=== PATIENT | female | born 1935 | race African-American/Black ===

== ENCOUNTER 2016-11-24 10:31 | Outpatient (CLI) | payer MEDICARE ==
[2016-11-24 11:03] LABS: #Basophils 0.1 thou/uL (0.0-0.2); #Eosinphils 0.2 thou/uL (0.0-0.7); #Lymphocytes 2.1 thou/uL (1.20-3.40); #Monocytes 0.4 thou/uL (0.11-0.59); #Neutrophils 5.7 thou/uL (1.40-6.50); %Basophils 1.4 % (0.0-1.0); %Lymphocytes 24.8 % (21.0-51.0); %Monocytes 4.7 % (0.0-10.0); %Neutrophils 67.1 % (42.0-75.0); Hemoglobin 13.2 g/dL (12.0-16.0); Mean Corpuscular HGB CONC 31.7 g/dL (32.0-36.0); Mean Corpuscular Hemoglobin 28.9 pg (27.0-31.0); Mean Corpuscular Volume 91.3 fl (81.0-99.0); Mean Platelet Volume 7.6 fL (7.4-10.4); Platelet Count 226 thou/uL (130-400); RBC Distribution Width 14.2 % (11.5-14.5); Red Blood Cell (RBC) Count 4.55 mill/uL (4.20-5.40); White Blood Cell (WBC) Count 8.5 thou/uL (4.8-10.8)
[2016-11-24 11:14] LABS: Hemoglobin A1c 6.8 % (4.0-6.0)
[2016-11-24 11:16] LABS: Anion Gap 14 mmol/L (10-20); BUN (Urea Nitrogen) 18 mg/dL (9.8-20.1); Calc. Creatinine Clearance 0 mL/min (70-130); Calcium 10.1 mg/dL (7.8-10.44); Carbon Dioxide 26 mmol/L (23-31); Chloride 103 mmol/L (98-107); Estimated GFR-MDRD 48; Glucose 136 mg/dL (83-110); Potassium 4.2 mmol/L (3.5-5.1); Sodium 139 mmol/L (136-145)
[2016-11-24 17:29] LABS: Iron 56 ug/dL (50-170)
== END 2016-11-24 10:32 ==
LOC: MADLABBHPM 10:31
PROVIDERS: ATTEND Family Medicine
DX: G25.81 Restless legs syndrome (principal); E11.9 Type 2 diabetes mellitus without complications
CPT/HCPCS: 36415; 80048; 82728; 83036; 83540; 85025

== ENCOUNTER 2017-02-23 11:02 | Outpatient (CLI) | payer MEDICARE ==
[2017-02-23 11:39] LABS: ALT (SGPT) 11 U/L (8-55); AST (SGOT) 15 U/L (5-34); Albumin 4.2 g/dL (3.4-4.8); Alkaline Phosphatase 89 U/L (40-150); Anion Gap 14 mmol/L (10-20); BUN (Urea Nitrogen) 24 mg/dL (9.8-20.1); Bilirubin, Total 0.6 mg/dL (0.2-1.2); Calc. Creatinine Clearance 0 mL/min (70-130); Calcium 10.4 mg/dL (7.8-10.44); Carbon Dioxide 25 mmol/L (23-31); Chloride 103 mmol/L (98-107); Estimated GFR-MDRD 39; Globulin 3.8 g/dL (2.4-3.5); Glucose 106 mg/dL (83-110); Potassium 4.4 mmol/L (3.5-5.1); Sodium 138 mmol/L (136-145)
== END 2017-02-23 11:03 | disposition home or self-care (01) ==
LOC: MADLAB 11:02
PROVIDERS: ATTEND Family Medicine
DX: R22.40 Localized swelling, mass and lump, unspecified lower limb (principal)
CPT/HCPCS: 36415; 80053; 83036

== ENCOUNTER 2017-09-21 18:22 | Emergency (ER) | payer MEDICARE ==
[~2017-09-21 18:22] MED LIST: Sodium Chloride 0.9% 1,000 ML BAG ONE
[2017-09-21] MEDS ORDERED: Insulin Regular 300 UNITS/3 ML VIAL ONE (20:50)
[2017-09-21 20:53] LABS: INR-International Normal Ratio 1.1; PTT 33.7 SEC (22.9-36.1)
[2017-09-21 20:58] LABS: #Basophils 0.1 thou/uL (0.0-0.2); #Eosinphils 0.2 thou/uL (0.0-0.7); #Lymphocytes 2.9 thou/uL (1.20-3.40); #Monocytes 0.5 thou/uL (0.11-0.59); #Neutrophils 7.3 thou/uL (1.40-6.50); %Basophils 1.1 % (0.0-1.0); %Eosinophils 1.4 % (0.0-10.0); %Lymphocytes 26.3 % (21.0-51.0); %Neutrophils 66.2 % (42.0-75.0); Hemoglobin 13.8 g/dL (12.0-16.0); Mean Corpuscular Hemoglobin 30.2 pg (27.0-31.0); Mean Corpuscular Volume 88.9 fl (81.0-99.0); Mean Platelet Volume 6.8 fL (7.4-10.4); Platelet Count 281 thou/uL (130-400); RBC Distribution Width 13.9 % (11.5-14.5); Red Blood Cell (RBC) Count 4.55 mill/uL (4.20-5.40)
[2017-09-21 21:04] LABS: ALT (SGPT) 14 U/L (8-55); AST (SGOT) 17 U/L (5-34); Acetaminophen Less than 6.0 mcg/mL (10.0-30.0); Albumin 4.5 g/dL (3.4-4.8); Alcohol Less than 10 mg/dL (Less than 10); Alkaline Phosphatase 99 U/L (40-150); Anion Gap 17 mmol/L (10-20); BUN (Urea Nitrogen) 17 mg/dL (9.8-20.1); Bilirubin, Total 0.5 mg/dL (0.2-1.2); Calc. Creatinine Clearance 0 mL/min (70-130); Calcium 10.7 mg/dL (7.8-10.44); Carbon Dioxide 25 mmol/L (23-31); Chloride 101 mmol/L (98-107); Estimated GFR-MDRD 46; Globulin 4.1 g/dL (2.4-3.5); Glucose 235 mg/dL (83-110); Protein, Total 8.6 g/dL (6.0-8.3); Salicylate Less than 8.0 mg/dL (15.0-30.0); Sodium 139 mmol/L (136-145)
--- NOTE | 2017-09-21 21:10 | RAD ---
PORTABLE AP CHEST X-RAY 09/21/17 HISTORY: Hyperglycemia. COMPARISON: 12/16/14. FINDINGS: Dual lead right subclavian cardiac pacing device remains in place. Multiple surgical clips again over lie the left chest and left axillary region. Cardiac silhouette is magnified by projection but stable in size. Thoracic aorta is ectatic and Pulmonary vasculature is within normal limits. The lungs are clear. There has been no interval from prior exam. IMPRESSION: Stable chest without evidence of acute cardiopulmonary process. POS: NORRIS
[2017-09-21 21:17] LABS: CKMB 3.1 ng/mL (0-6.6); Troponin I Less than 0.010 ng/mL (< 0.028)
== END 2017-09-21 22:15 | disposition home or self-care (01) ==
LOC: MADERS 18:22
DX: E11.65 Type 2 diabetes mellitus with hyperglycemia (principal); I10 Essential (primary) hypertension; Z79.82 Long term (current) use of aspirin; Z79.4 Long term (current) use of insulin; Z79.899 Other long term (current) drug therapy
CPT/HCPCS: 36416; 71045; 80053; 80307; 82553; 83880; 84484; 85025; 85610; 85730; 87040; 87081; 87430; 87804; 93005; 94760; 96360; J1815; J7050

== ENCOUNTER 2018-08-14 07:55 | Emergency (ER) | payer MEDICARE ==
[2018-08-14] MEDS ORDERED: Morphine 10 MG/ML VIAL ONE (08:44)
== END 2018-08-14 09:37 | disposition home or self-care (01) ==
LOC: MADERS 07:55
DX: M54.42 Lumbago with sciatica, left side (principal); E78.5 Hyperlipidemia, unspecified; E11.9 Type 2 diabetes mellitus without complications; I10 Essential (primary) hypertension; Z79.899 Other long term (current) drug therapy; Z79.4 Long term (current) use of insulin
CPT/HCPCS: 96372; J2270

== ENCOUNTER 2018-10-13 08:36 | Outpatient (CLI) | payer MEDICARE ==
[2018-10-13] MEDS ORDERED: Iopamidol 370 76% 100 ML VIAL ONE (09:22)
--- NOTE | 2018-10-13 10:54 | CT ---
CT abdomen with and without IV contrast: HISTORY: Pancreatic mass FINDINGS: There are cystic masses in the pancreatic tail the largest measuring 3.7 cm. Small cystic masses are also seen in the pancreatic body measuring up to 8 mm. No abnormal pancreatic ductal dilatation is seen. No pancreatic calcifications are identified. There are mild dependent changes in the lung bases. A moderate-sized hiatal hernia is present. No joseph cified gallstones are noted. Liver, spleen and adrenal glands are normal. Bilateral renal cysts are present. No free air, free fluid or lymphadenopathy seen in the abdomen. The small bowel loops are not abnorma lly dilated. There is colonic diverticulosis. No abdominal aortic aneurysm is seen. There are degenerative changes in the spine. Postoperative changes are seen in the lower lumbar spine. IMPRESSION: 1. Indeterminate cystic masses in the pancreas should be evaluated with endoscopic ultrasound. 2. Renal cysts. 3. Colonic diverticulosis. 4. Hiatal hernia.
== END 2018-10-13 08:37 | disposition home or self-care (01) ==
LOC: MADLAB 08:36
PROVIDERS: ATTEND Internal Medicine Gastroenterology
DX: K86.89 Other specified diseases of pancreas (principal); N28.1 Cyst of kidney, acquired; K57.30 Diverticulosis of large intestine without perforation or abscess without bleeding; K44.9 Diaphragmatic hernia without obstruction or gangrene
CPT/HCPCS: 36415; 74170; 82565; Q9967

== ENCOUNTER 2019-07-31 13:15 | Emergency (ER) | payer MEDICARE ==
--- NOTE | 2019-07-31 14:03 | RAD ---
2 view chest: [07/31/2019] Comparison:09/21/2017 HISTORY: Cough FINDINGS: Stable postoperative clips in the left axillary region. Stable dual lead transvenous pacing device on the right. Stable atherosclerotic calcific ascending aortic arch. No pneumothorax, pleural effusion, focal consolidation, or alveolar edema. Multilevel degenerative change of the lower thoracic spine. Stable prominence of the cardiac silhouette. IMPRESSION: Chronic findings as above. No acute findings.
[2019-07-31] MEDS ORDERED: Ibuprofen 800 MG TAB ONE (14:10)
== END 2019-07-31 15:41 | disposition home or self-care (01) ==
LOC: MADERS 13:15
DX: B34.9 Viral infection, unspecified (principal); E11.9 Type 2 diabetes mellitus without complications; E78.5 Hyperlipidemia, unspecified; I10 Essential (primary) hypertension; E78.00 Pure hypercholesterolemia, unspecified; Z79.4 Long term (current) use of insulin
CPT/HCPCS: 71046; 87081; 87430; 87804

== ENCOUNTER 2019-12-14 02:37 | Emergency (ER) | payer MEDICARE ==
[2019-12-14] MEDS ORDERED: Ondansetron PF 4 MG/2 ML Vial ONE (03:08)
[2019-12-14] MEDS ORDERED: Meclizine HCl 25 MG TAB ONE (03:08)
[2019-12-14 03:14] LABS: Bilirubin Negative (Negative); Blood, Urine Trace (Negative); Glucose, Urine (Dipstick) Negative (Negative); Ketone, Urine Negative (Negative); Leukocyte Moderate (Negative); Nitrite Negative (Negative); Protein, Urine (Dipstick) 100 mg/dL (Neg-Trace); Urobilinogen 0.2 mg/dL (Less than 2)
[2019-12-14 03:15] LABS: #Basophils 0.1 thou/uL (0.0-0.2); #Lymphocytes 1.6 thou/uL (1.20-3.40); #Monocytes 0.6 thou/uL (0.11-0.59); #Neutrophils 10.1 thou/uL (1.40-6.50); %Basophils 0.9 % (0.0-1.0); %Eosinophils 0.4 % (0.0-10.0); %Lymphocytes 13.1 % (21.0-51.0); %Monocytes 4.8 % (0.0-10.0); %Neutrophils 80.8 % (42.0-75.0); Hemoglobin 12.2 g/dL (12.0-16.0); Mean Corpuscular HGB CONC 30.5 g/dL (32.0-36.0); Mean Corpuscular Hemoglobin 27.6 pg (27.0-31.0); Mean Corpuscular Volume 90.4 fL (78.0-98.0); Mean Platelet Volume 6.7 fL (7.4-10.4); Platelet Count 273 thou/uL (130-400); RBC Distribution Width 15.1 % (11.5-14.5); Red Blood Cell (RBC) Count 4.42 mill/uL (4.20-5.40); White Blood Cell (WBC) Count 12.5 thou/uL (4.8-10.8)
[2019-12-14 03:15] LABS: Clarity Slightly Cloudy (Clear)
[2019-12-14 03:20] LABS: Bacteria/HPF 1+ HPF (None Seen); RBC/HPF 0-3 HPF (0-3)
[2019-12-14 03:30] LABS: ALT (SGPT) 9 U/L (8-55); AST (SGOT) 20 U/L (5-34); Albumin 4.4 g/dL (3.4-4.8); Alkaline Phosphatase 103 U/L (40-110); Anion Gap 17 mmol/L (10-20); BUN (Urea Nitrogen) 22 mg/dL (9.8-20.1); Bilirubin, Total 0.3 mg/dL (0.2-1.2); CK (CPK) 395 U/L (29-168); Calc. Creatinine Clearance 0 mL/min (70-130); Calcium 10.5 mg/dL (7.8-10.44); Carbon Dioxide 23 mmol/L (23-31); Chloride 105 mmol/L (98-107); Estimated GFR-MDRD 38; Globulin 3.7 g/dL (2.4-3.5); Glucose 103 mg/dL (83-110); Protein, Total 8.1 g/dL (6.0-8.3); Sodium 141 mmol/L (136-145)
[2019-12-14] MEDS ORDERED: cefTRIAXone\\ROCEPHIN 2 GM VIAL ONE (04:24)
--- NOTE | 2019-12-14 07:18 | CT ---
PRELIMINARY REPORT/[facility]/EMERGENCY AFTER HOURS PROCEDURE: EXAM: CT BRAIN WO CON HISTORY: FALL, DIZZINESS, HX OF VERTIGO COMPARISON: None FINDINGS: No focal parenchymal hypodensity to suggest acute ischemia or cerebral edema. No hydrocephalus, midline shift or mass-effect. Periventricular white matter hypodensities bilaterally. No intracranial hemorrhage. No extra-axial fluid collections. Postsurgical changes of prior right-sided lens replacement. The calvarium is intact. Paranasal sinuses and mastoids are clear. There is extensive atherosclerotic vascular calcifications with cranial ICAs. No focal scalp swelling. IMPRESSION: 1. No acute intracranial process. 2. Chronic ischemic microvascular white matter disease. 3. Extensive atherosclerotic vascular calcifications. ELECTRONICALLY SIGNED BY: Orlin Castañead MD Dec 14, 2019 3:34:13 AM CDT This report is intended for review by the ordering physician only, in accordance of law. If you recei ve this report in error, please call [facility] at [phone]. FINAL REPORT EMERGENCY AFTER HOURS CT BRAIN WITHOUT CONTRAST: FINDINGS/IMPRESSION: I agree with the findings and impression given in the preliminary report per [facility] physici an. No evidence of acute intracranial abnormality. POS: TANVI
--- NOTE | 2019-12-14 07:56 | RAD ---
EXAM: 3 views of the right shoulder HISTORY: Shoulder pain COMPARISON: None FINDINGS: There is no evidence of acute fracture or dislocation. There is a high riding humeral head which could be secondary to chronic rotator cuff tear. Mild acromioclavicular and glenohumeral degenerative changes are present. No soft tissue swelling is seen. A pacemaker generator is seen in t he right chest wall. IMPRESSION: No evidence of acute osseous abnormality.
[2019-12-14] MEDS ORDERED: Sodium Chloride 0.9% 100 ML BAG ONE (09:42)
[2019-12-14] MEDS ORDERED: Sodium Chloride 0.9% 500 ML BAG ONE (10:13)
== END 2019-12-14 05:45 | disposition home or self-care (01) ==
LOC: MADERS 02:37
DX: R42 Dizziness and giddiness (principal); N39.0 Urinary tract infection, site not specified; E11.9 Type 2 diabetes mellitus without complications; E78.5 Hyperlipidemia, unspecified; I10 Essential (primary) hypertension; Z79.899 Other long term (current) drug therapy; Z79.4 Long term (current) use of insulin
CPT/HCPCS: 70450; 80053; 81003; 81015; 82550; 85025; 96365; 96375; J0696; J2405; J3490; J7030

== ENCOUNTER 2020-06-07 16:34 | Emergency (ER) | payer MEDICARE ==
--- NOTE | 2020-06-07 17:23 | RAD ---
EXAM: Single view of the chest HISTORY: Dyspnea COMPARISON: 09/21/2017 FINDINGS: Single view of the chest shows an enlarged but stable cardiomediastinal silhouette. The pa cemaker is unchanged in position. Increased interstitial markings are present. There is no evidence of consolidation, mass, or pleural effusion. Degenerative changes are seen in the spine. Surgical cli ps are seen in the left axilla. IMPRESSION: Cardiomegaly without evidence of acute cardiopulmonary disease
[2020-06-07 17:44] LABS: #Basophils 0.1 thou/uL (0.0-0.2); #Eosinphils 0.1 thou/uL (0.0-0.7); #Lymphocytes 1.5 thou/uL (1.20-3.40); #Monocytes 0.4 thou/uL (0.11-0.59); #Neutrophils 6.2 thou/uL (1.40-6.50); %Basophils 1.7 % (0.0-1.0); %Eosinophils 1.4 % (0.0-10.0); %Monocytes 5.2 % (0.0-10.0); %Neutrophils 73.8 % (42.0-75.0); Hemoglobin 11.8 g/dL (12.0-16.0); Mean Corpuscular HGB CONC 31.8 g/dL (32.0-36.0); Mean Corpuscular Hemoglobin 28.6 pg (27.0-31.0); Mean Corpuscular Volume 90.1 fL (78.0-98.0); Mean Platelet Volume 6.7 fL (7.4-10.4); Platelet Count 244 thou/uL (130-400); RBC Distribution Width 15.7 % (11.5-14.5); Red Blood Cell (RBC) Count 4.11 mill/uL (4.20-5.40); White Blood Cell (WBC) Count 8.4 thou/uL (4.8-10.8)
[2020-06-07] MEDS ORDERED: diphenhydrAMINE 50 MG/ML VIAL ONE (17:53)
[2020-06-07] MEDS ORDERED: Metoclopramide HCl 10 MG/2 ML VIAL ONE (17:53)
[2020-06-07 17:58] LABS: ALT (SGPT) 22 U/L (8-55); AST (SGOT) 21 U/L (5-34); Albumin 4.1 g/dL (3.4-4.8); Alkaline Phosphatase 85 U/L (40-110); Anion Gap 15 mmol/L (10-20); BUN (Urea Nitrogen) 19 mg/dL (9.8-20.1); Bilirubin, Total 0.5 mg/dL (0.2-1.2); Calc. Creatinine Clearance 0 mL/min (70-130); Calcium 9.8 mg/dL (7.8-10.44); Carbon Dioxide 27 mmol/L (23-31); Chloride 104 mmol/L (98-107); Globulin 3.1 g/dL (2.4-3.5); Glucose 148 mg/dL (83-110); Protein, Total 7.2 g/dL (6.0-8.3); Sodium 142 mmol/L (136-145)
--- NOTE | 2020-06-07 18:09 | CT ---
EXAM: CT brain without contrast HISTORY: Headache COMPARISON: 12/14/2019 TECHNIQUE: Multiple contiguous axial images were obtained and a CT of the brain without contrast. FINDINGS: There are scattered hypodensities in the subcortical and periventricular white matter consi stent with small vessel ischemic disease. There is no evidence of hydrocephalus, intracranial hemorrhage, or extra-axial fluid collection. The calvarium and overlying soft tissues are unremarkable. The visualized paranasal sinuses and masto id air cells are well aerated. IMPRESSION: No evidence of acute intracranial abnormality
[2020-06-07 18:16] LABS: CKMB 3.6 ng/mL (0-6.6)
== END 2020-06-07 18:45 | disposition home or self-care (01) ==
LOC: MADERS 16:34
DX: I11.0 Hypertensive heart disease with heart failure (principal); I50.9 Heart failure, unspecified; R51.9 Headache, unspecified; E78.5 Hyperlipidemia, unspecified; E78.00 Pure hypercholesterolemia, unspecified; E11.9 Type 2 diabetes mellitus without complications; Z79.899 Other long term (current) drug therapy
CPT/HCPCS: 36415; 70450; 71045; 80053; 82553; 84484; 85025; 93005; 96374; 96375; J1200; J2765

== ENCOUNTER 2020-07-28 16:36 | Emergency (ER) | payer MEDICARE ==
[2020-07-28] MEDS ORDERED: Dextrose 5 % And 0.9 % NaCl 1,000 ML ONE (17:01)
[2020-07-28 17:24] LABS: Bilirubin Negative (Negative); Blood, Urine Small (Negative); Glucose, Urine (Dipstick) Negative (Negative); Ketone, Urine Negative (Negative); Leukocyte Negative (Negative); Nitrite Negative (Negative); Protein, Urine (Dipstick) > or equal to 300 mg/dL (Neg-Trace); Specific Gravity, Urine 1.025 (1.005-1.030); Urobilinogen 0.2 mg/dL (Less than 2)
[2020-07-28 17:27] LABS: Clarity Hazy (Clear)
[2020-07-28] MEDS ORDERED: Dextrose 50% Abboject 50 ML SYRINGE ONE ×2 (17:27→20:11)
[2020-07-28 17:31] LABS: Bacteria/HPF 2+ HPF (None Seen); RBC/HPF 0-3 HPF (0-3)
[2020-07-28 17:32] LABS: Amphetamine Not Detected (NotDetected); Barbiturates Screen Not Detected (NotDetected); Benzodiazepine Screen Not Detected (NotDetected); Cocaine Metabolite Screen Not Detected (NotDetected); Medtox Control Line Valid? VALID (VALID); Methadone Not Detected (NotDetected); Methamphetamine Not Detected (NotDetected); Opiate Screen Not Detected (NotDetected); Oxycodone Screen Not Detected (NotDetected); Phencyclidine (PCP) Not Detected (NotDetected); THC/Cannabinoid Screen Not Detected (NotDetected); Tricyclic Screen Not Detected (NotDetected)
[2020-07-28 17:35] LABS: #Basophils 0.1 thou/uL (0.0-0.2); #Eosinphils 0.1 thou/uL (0.0-0.7); #Lymphocytes 0.9 thou/uL (1.20-3.40); #Monocytes 0.6 thou/uL (0.11-0.59); #Neutrophils 9.2 thou/uL (1.40-6.50); %Basophils 1.1 % (0.0-1.0); %Eosinophils 0.8 % (0.0-10.0); %Lymphocytes 8.6 % (21.0-51.0); %Monocytes 5.1 % (0.0-10.0); %Neutrophils 84.4 % (42.0-75.0); Hemoglobin 11.7 g/dL (12.0-16.0); Mean Corpuscular HGB CONC 30.7 g/dL (32.0-36.0); Mean Corpuscular Hemoglobin 28.2 pg (27.0-31.0); Mean Corpuscular Volume 91.9 fL (78.0-98.0); Mean Platelet Volume 6.2 fL (7.4-10.4); Platelet Count 240 thou/uL (130-400); RBC Distribution Width 17.2 % (11.5-14.5); Red Blood Cell (RBC) Count 4.16 mill/uL (4.20-5.40); White Blood Cell (WBC) Count 10.8 thou/uL (4.8-10.8)
--- NOTE | 2020-07-28 17:38 | RAD ---
PORTABLE CHEST: 07/28/20 PROVIDED CLINICAL HISTORY: Cough. FINDINGS: Comparison 06/07/20. Cardiac silhouette remains enlarged. Vascular calcifications seen involving the aortic arch. Right s ubclavian cardiac pacing device and left hemithoracic surgical clips are redemonstrated. There is dif fuse prominence of the pulmonary interstitium. There is patch air space disease suspected at the rig ht lung base. There is no pleural fluid or pneumothorax apparent. IMPRESSION: Suspected right basilar air space disease. Correlate for pneumonia. POS: YAN
[2020-07-28 17:42] LABS: ALT (SGPT) 38 U/L (8-55); AST (SGOT) 35 U/L (5-34); Albumin 4.1 g/dL (3.4-4.8); Alkaline Phosphatase 83 U/L (40-110); Anion Gap 14 mmol/L (10-20); BUN (Urea Nitrogen) 16 mg/dL (9.8-20.1); Bilirubin, Total 0.6 mg/dL (0.2-1.2); CK (CPK) 466 U/L (29-168); Calc. Creatinine Clearance 0 mL/min (70-130); Carbon Dioxide 29 mmol/L (23-31); Chloride 107 mmol/L (98-107); Potassium 3.8 mmol/L (3.5-5.1); Protein, Total 7.1 g/dL (5.8-8.1); Sodium 146 mmol/L (136-145)
[2020-07-28 17:52] LABS: Glucose 50 mg/dL (83-110)
[2020-07-28 18:02] LABS: CKMB 12.6 ng/mL (0-6.6)
[2020-07-28] MEDS ORDERED: Sodium Chloride 0.9% 100 ML ONE (18:10)
[2020-07-28] MEDS ORDERED: cefTRIAXone\\ROCEPHIN 2 GM VIAL ONE (18:10)
[2020-07-28] MEDS ORDERED: Azithromycin 500 MG VIAL ONE (18:35)
[2020-07-28] MEDS ORDERED: Enoxaparin Sodium 40 MG/0.4 ML SYRINGE ONE (18:35)
[2020-07-28] MEDS ORDERED: Aspirin Chewable 81 MG TAB ONE (18:35)
[2020-07-28] MEDS ORDERED: Sodium Chloride 0.9% 250 ML 250 ML ONE (18:36)
[2020-07-28 19:35] LABS: SARS-CoV-2 NAA Rapid Test Not Detected (NotDetected)
== END 2020-07-28 20:21 | disposition short-term general hospital (02) ==
LOC: MADERS 16:36
DX: E11.649 Type 2 diabetes mellitus with hypoglycemia without coma (principal); J18.9 Pneumonia, unspecified organism; I50.9 Heart failure, unspecified; E78.5 Hyperlipidemia, unspecified; E78.00 Pure hypercholesterolemia, unspecified; Z79.82 Long term (current) use of aspirin; Z79.4 Long term (current) use of insulin; Z79.899 Other long term (current) drug therapy
CPT/HCPCS: 0240U; 36415; 36416; 71045; 80053; 80306; 81003; 81015; 82550; 82553; 83605; 84484; 85025; 87040; 87077; 87086; 93005; 96361; 96365; 96367; 96372; 96375; 96376; J0456; J0696; J1650; J3490; J7042; J7050

== ENCOUNTER 2020-08-05 18:09 | Inpatient (IN) | payer MEDICARE ==
[2020-08-05] MEDS ORDERED: Furosemide 20 MG TAB PO PRN (20:12)
[2020-08-05 20:34] VITALS: BMI 35.2
[2020-08-05] MEDS: hydrALAZINE 25 MG TAB PO SCH (20:54)
[2020-08-05] MEDS: Atorvastatin Calcium 10 MG TAB PO SCH (20:55)
[2020-08-05] MEDS: HumuLIN 70/30 (300 UNITS/3 ML VIAL) SC SCH (20:55)
[2020-08-05] MEDS: busPIRone HCl 5 MG TAB PO SCH (20:55)
[2020-08-06] MEDS ORDERED: Pramipexole Di-HCl 0.25 MG TAB PO SCH (09:00)
[2020-08-06] MEDS: Aspirin 325 MG TAB PO SCH (09:12)
[2020-08-06] MEDS: Carvedilol 12.5 MG TAB PO SCH ×2 (09:12→17:29)
[2020-08-06] MEDS: Losartan Potassium 50 MG TAB PO SCH (09:13)
[2020-08-06] MEDS: hydrALAZINE 25 MG TAB PO SCH ×2 (09:13→21:40)
[2020-08-06] MEDS: busPIRone HCl 5 MG TAB PO SCH (09:13)
[2020-08-06] MEDS: HumuLIN 70/30 (300 UNITS/3 ML VIAL) SC SCH (09:14)
[2020-08-06] MEDS ORDERED: hydrALAZINE 20 MG/ML VIAL SLOW IVP SCH (11:15)
--- NOTE | 2020-08-06 11:55 | RAD ---
XR Chest 1 View Portable History: Pneumonia Comparison: Radiograph August 01, 2020 Findings: Heart size is enlarged. Mild pulmonary venous congestion. Pacer electrode tips are in a sim ilar location. Left axillary surgical clips. Impression: Cardiomegaly and mild pulmonary venous congestion. No evidence for overt pneumonia.
--- NOTE | 2020-08-06 12:22 | CT ---
CT Brain WO Con History: Altered mental status Comparison: CT brain July 31, 2020 Findings: Extensive chronic microangiopathic changes. Mild atrophy. No acute hemorrhage. No territori al infarction. No midline shift or mass effect. Paranasal sinuses and mastoids are relatively clear. Globes are intact. Impression: Extensive chronic findings. No acute intracranial abnormality.
[2020-08-06 12:23] LABS: ALT (SGPT) 18 U/L (8-55); AST (SGOT) 18 U/L (5-34); Albumin 3.4 g/dL (3.4-4.8); Alkaline Phosphatase 67 U/L (40-110); Anion Gap 15 mmol/L (10-20); BUN (Urea Nitrogen) 28 mg/dL (9.8-20.1); Bilirubin, Total 0.4 mg/dL (0.2-1.2); Calc. Creatinine Clearance 48 mL/min (70-130); Calcium 9.4 mg/dL (7.8-10.44); Carbon Dioxide 27 mmol/L (23-31); Chloride 100 mmol/L (98-107); Globulin 3.1 g/dL (2.4-3.5); Glucose 114 mg/dL (83-110); Magnesium 2.1 mg/dL (1.6-2.6); Potassium 4.6 mmol/L (3.5-5.1); Protein, Total 6.5 g/dL (5.8-8.1); Sodium 137 mmol/L (136-145)
[2020-08-06 12:41] LABS: CKMB 2.9 ng/mL (0-6.6)
[2020-08-06 13:06] LABS: Anisocytosis SLIGHT = 6-15 cells (100X) (0-5/hpf); Eosinophils 2 % (0-10); Hemoglobin 11.6 g/dL (12.0-16.0); Hypochromia SLIGHT = 6-15 cells (100X) (0-5/hpf); Lymphocytes 25 % (21-51); MDiff Complete? YES; Mean Corpuscular HGB CONC 30.5 g/dL (32.0-36.0); Mean Corpuscular Hemoglobin 27.7 pg (27.0-31.0); Mean Corpuscular Volume 90.8 fL (78.0-98.0); Monocytes 10 % (0-10); Neutrophil 63 % (42-75); Platelet Count 266 thou/uL (130-400); Platelet Morphology Comment Appears Adequate; RBC Distribution Width 16.2 % (11.5-14.5); Red Blood Cell (RBC) Count 4.18 mill/uL (4.20-5.40); Target Cells SLIGHT = 2-5 cells (100X) (0-1/hpf)
[2020-08-06 13:23] LABS: Thyroid Stimulating Hormone 2.1199 uIU/mL (0.35-4.94)
--- NOTE | 2020-08-06 18:03 | HP ---
PRIMARY CARE PHYSICIAN: Mitali Celeste MD REASON FOR ADMISSION: Deconditioning general weakness after recent hospitalization. HISTORY OF PRESENT ILLNESS: Ms. Rodriguez is an 84-year-old female with significant history of diabetes type 2, insulin requiring; hypertension; dyslipidemia; obesity; chronic GERD; chronic depression; anxiety; restless legs syndrome. The patient was admitted on 07/29/2020 at [facility] after she was found to have altered mental status at home. Apparently, the patient inadvertently took more than her regular home insulin dose and she was found to have a blood sugar of 19 per EMS report. She then was transferred initially to [facility] and subsequently admitted to [facility] in [place]. At the hospital, she received supportive care until her blood sugar has improved. During the course of stay, she was reported to have moments where whenever her blood pressure is elevated, she is more confused and having jerking movements. There was some concern for seizure. Thus, Neurology was consulted. Dr. Caban recommended to place the patient on Keppra. The patient was not a good candidate for an MRI due to presence of pacemaker. EEG was not done but patient was treated wit Keppra by neurologist as there was a distant history of concussion that may be a factor for this. However, Keppra was discontinued due to intolerance, patient becoming more confused and had some agitations while on Keppra. The patient was reported to be back to her normal self and baseline mental status after Keppra was discontinued. So after the blood pressure was controlled with current medications, the patient was subsequently transferred to [facility] for further rehab. When the patient was admitted, her initial vital signs on the night of 08/05/2020 showed blood pressure of 166/81, temperature 98.4, pulse 69, respirations 18, and O2 saturations 96% on room air. The patient was reported initially to be awake, alert, and oriented x2 with spontaneous speech. She was reported to have no overnight events. She was voiding and ambulatory to the bathroom. The last time she voided was last night. This morning, the patient was reported not responding appropriately with the staff. Her blood sugar initially was 96. Occupational therapist assessed the patient, but unable to wake up patient. The patient only grimaces or opens her eyes to question, but easily goes back to sleep. When evaluated, her vital signs stayed with blood pressure of 137/75, temperature 97.6, pulse 71, respirations 18, O2 saturations 96% on room air. Blood sugar was 103. The patient remains asleep and snoring loud, but would not wake up. ADDITIONAL PAST MEDICAL HISTORY: Breast cancer, status post pacemaker for bradycardia/sinus syndrome. PAST SURGICAL HISTORY: History of hysterectomy 40 years ago, mastectomy of the left breast 16 years ago, spinal surgery on lumbar in 11/2009. ALLERGIES: HYDROCODONE AND PENICILLIN. CURRENT MEDICATIONS: 1. Aspirin 325 mg daily. 2. Atorvastatin 10 mg p.o. at bedtime. 3. Buspirone 5 mg p.o. t.i.d. 4. Carvedilol 25 mg p.o. b.i.d. 5. Furosemide 10 mg p.o. daily p.r.n. 6. Humulin 70/30, 30 units subcu b.i.d. 7. Losartan 100 mg p.o. daily. 8. Hydralazine 75 mg p.o. b.i.d. 9. Omeprazole 40 mg daily. 10. Pramipexole 0.75 mg p.o. daily. FAMILY HISTORY: Noncontributory. SOCIAL HISTORY: Lives at home alone. The patient has no smoking history. Denies alcohol or illicit drug use. REVIEW OF SYSTEMS: Unobtainable secondary to current cognitive status. PHYSICAL EXAMINATION: VITAL SIGNS: Blood pressure 137/75, temperature 97.6, pulse 71, respirations 18, O2 saturations 96% on room air, weight 218 pounds and 3.2 ounces, height 5 feet 6 inches, BMI 35.2. GENERAL: The patient is asleep, snoring loud. No signs of agony. Not in acute respiratory distress. HEENT: Normocephalic, atraumatic. No facial asymmetry noted. Pinpoint pupils, sluggishly reactive to light. Intact EOM, moving [id number] when eyes were checked. CHEST: Normal excursion. No labored breathing. RESPIRATORY: Good air movements, symmetrical. Clear breath sounds bilaterally. No rales. No crackles. No rhonchi. No wheezes. ABDOMEN: Positive central obesity. Normoactive bowel sounds. Nondistended, nontender. No rebound. No guarding. EXTREMITIES: No edema. No cyanosis. NEUROLOGIC: Grimaces when touched, moans when every now and then when asked questions. Tongue is positioned to the left side and snoring loud. DTRs 2+. ASSESSMENT AND PLAN: 1. Episodic alteration of mental status. This is the third episode that the patient had since the recent hospitalization. Differential diagnosis includes hypoventilation syndrome/obstructive sleep apnea, unspecified convulsion, psychological etiology, transient ischemic attack/cerebrovascular accident. We will obtain routine blood work including chest x-ray and CT scan of the brain. We will continue to monitor closely. Possible Neurology consult if the patient will not have any significant changes in mental status. Consider higher level of care in a tertiary hospital if condition continued. We will notify family. 2. Seizure, unspecified convulsion, new onset. Intolerant to Keppra. 3. Diabetes type 2 with history of hypoglycemia secondary to inadvertent erroneous use of insulin at home. 4. Hypertension with history of hypertensive emergency. 5. History of depression and anxiety. 6. Dyslipidemia. 7. History of restless legs syndrome. 8. Morbid obesity with body mass index of 35. 9. History of hypomagnesemia. We will hold all the patient's current medications. We will continue Accu-Chek monitoring. Hypoglycemic precautions. Further recommendations depending on the lab/test results. CODE STATUS: The patient is full code. DISPOSITION: Possible [facility] placement. TIME SPENT: On this admission, 60 minutes in examining the patient, coordinating care, and discussion with the family. Job ID: [id number] MTDD
[2020-08-06] MEDS ORDERED: Dextrose 50% Abboject 50 ML SYRINGE IVP PRN (19:15)
[2020-08-06] MEDS ORDERED: Dextrose 5% in Water 1,000 ML IV PRN (19:15)
[2020-08-06] MEDS: Clotrimazole 1% Cream 15 GM TUBE TOP SCH (21:40)
[2020-08-06] MEDS: Atorvastatin Calcium 10 MG TAB PO SCH (21:40)
[2020-08-06] MEDS: Triamcinolone 0.1% Cream 15 GM TUBE TOP SCH (21:41)
[2020-08-06] MEDS: HumaLOG 300 UNITS/3 ML VIAL SC PRN (21:42)
[2020-08-06 23:17] LABS: Bilirubin Negative (Negative); Blood, Urine Negative (Negative); Clarity Clear (Clear); Glucose, Urine (Dipstick) Negative (Negative); Ketone, Urine Negative (Negative); Leukocyte Negative (Negative); Nitrite Negative (Negative); Protein, Urine (Dipstick) Negative (Neg-Trace); Specific Gravity, Urine 1.025 (1.005-1.030); Urobilinogen 0.2 mg/dL (Less than 2)
[2020-08-06 23:18] LABS: Urine Culture Reflex No No
[2020-08-07] MEDS: Aspirin 325 MG TAB PO SCH (08:56)
[2020-08-07] MEDS: Carvedilol 12.5 MG TAB PO SCH ×2 (08:56→17:14)
[2020-08-07] MEDS: Clotrimazole 1% Cream 15 GM TUBE TOP SCH ×2 (08:57→20:33)
[2020-08-07] MEDS: Losartan Potassium 50 MG TAB PO SCH (08:57)
[2020-08-07] MEDS: hydrALAZINE 25 MG TAB PO SCH ×2 (08:57→20:33)
[2020-08-07] MEDS: lamoTRIgine 25 MG TAB PO SCH (08:58)
[2020-08-07] MEDS: HumaLOG 300 UNITS/3 ML VIAL SC PRN ×3 (08:59→20:36)
[2020-08-07] MEDS: Triamcinolone 0.1% Cream 15 GM TUBE TOP SCH ×2 (09:08→20:33)
[2020-08-07 14:40] LABS: Hemoglobin A1c 6.2 % (4.0-6.0)
[2020-08-07 15:01] LABS: Free T4 (Free Thyroxine) 0.87 ng/dL (0.70-1.48)
[2020-08-07] MEDS ORDERED: Polyethylene Glycol 3350 17 GM Packet PO SCH (19:00)
[2020-08-07] MEDS: Atorvastatin Calcium 10 MG TAB PO SCH (20:32)
[2020-08-08] MEDS: Lantus 1000 UNITS/10 ML VIAL SC SCH (08:36)
[2020-08-08] MEDS: Aspirin 325 MG TAB PO SCH (08:38)
[2020-08-08] MEDS: hydrALAZINE 25 MG TAB PO SCH ×2 (08:38→20:46)
[2020-08-08] MEDS: lamoTRIgine 25 MG TAB PO SCH (08:38)
[2020-08-08] MEDS: Losartan Potassium 50 MG TAB PO SCH (08:38)
[2020-08-08] MEDS: Clotrimazole 1% Cream 15 GM TUBE TOP SCH ×2 (08:39→20:48)
[2020-08-08] MEDS: Carvedilol 12.5 MG TAB PO SCH ×2 (08:39→17:15)
[2020-08-08] MEDS: Polyethylene Glycol 3350 17 GM Packet PO SCH (08:40)
[2020-08-08] MEDS: Triamcinolone 0.1% Cream 15 GM TUBE TOP SCH ×2 (08:41→20:48)
[2020-08-08] MEDS: HumaLOG 300 UNITS/3 ML VIAL SC PRN ×4 (08:47→21:00)
[2020-08-08] MEDS ORDERED: Insulin Glargine 10 UNITS in Pre-Filled Syringe 1 EACH SC SCH (09:00)
[2020-08-08] MEDS: Atorvastatin Calcium 10 MG TAB PO SCH (20:46)
[2020-08-09] MEDS: Polyethylene Glycol 3350 17 GM Packet PO SCH (08:27)
[2020-08-09] MEDS: Carvedilol 12.5 MG TAB PO SCH ×2 (08:28→18:12)
[2020-08-09] MEDS: Aspirin 325 MG TAB PO SCH (08:28)
[2020-08-09] MEDS: hydrALAZINE 25 MG TAB PO SCH ×2 (08:29→21:21)
[2020-08-09] MEDS: Losartan Potassium 50 MG TAB PO SCH (08:29)
[2020-08-09] MEDS: lamoTRIgine 25 MG TAB PO SCH (08:29)
[2020-08-09] MEDS: Lantus 1000 UNITS/10 ML VIAL SC SCH (08:30)
[2020-08-09] MEDS: Clotrimazole 1% Cream 15 GM TUBE TOP SCH ×2 (08:31→21:21)
[2020-08-09] MEDS: Triamcinolone 0.1% Cream 15 GM TUBE TOP SCH ×2 (08:31→21:22)
[2020-08-09] MEDS: HumaLOG 300 UNITS/3 ML VIAL SC PRN ×2 (12:05→18:15)
[2020-08-09] MEDS: Atorvastatin Calcium 10 MG TAB PO SCH (21:20)
[2020-08-09] MEDS: Triple Antibiotic Ointment 15 GM TUBE TOP SCH (21:23)
[2020-08-10] MEDS: Polyethylene Glycol 3350 17 GM Packet PO SCH (09:02)
[2020-08-10] MEDS: hydrALAZINE 25 MG TAB PO SCH ×3 (09:03→20:14)
[2020-08-10] MEDS: Carvedilol 12.5 MG TAB PO SCH ×2 (09:04→16:58)
[2020-08-10] MEDS: Losartan Potassium 50 MG TAB PO SCH (09:04)
[2020-08-10] MEDS: Aspirin 325 MG TAB PO SCH (09:04)
[2020-08-10] MEDS: Clotrimazole 1% Cream 15 GM TUBE TOP SCH ×2 (09:04→20:15)
[2020-08-10] MEDS: lamoTRIgine 25 MG TAB PO SCH (09:04)
[2020-08-10] MEDS: Lantus 1000 UNITS/10 ML VIAL SC SCH (09:05)
[2020-08-10] MEDS: Triamcinolone 0.1% Cream 15 GM TUBE TOP SCH ×2 (09:05→20:15)
[2020-08-10] MEDS: Triple Antibiotic Ointment 15 GM TUBE TOP SCH (10:44)
[2020-08-10] MEDS: HumaLOG 300 UNITS/3 ML VIAL SC PRN ×3 (12:15→20:47)
[2020-08-10] MEDS: Triple Antibiotic Oint 1 GM Packet TOP SCH ×2 (15:53→20:17)
[2020-08-10] MEDS: Atorvastatin Calcium 10 MG TAB PO SCH (20:14)
[2020-08-11] MEDS: Losartan Potassium 50 MG TAB PO SCH (08:14)
[2020-08-11] MEDS: lamoTRIgine 25 MG TAB PO SCH (08:15)
[2020-08-11] MEDS: Carvedilol 12.5 MG TAB PO SCH ×2 (08:15→17:14)
[2020-08-11] MEDS: hydrALAZINE 25 MG TAB PO SCH ×3 (08:15→21:12)
[2020-08-11] MEDS: Aspirin 325 MG TAB PO SCH (08:15)
[2020-08-11] MEDS: Clotrimazole 1% Cream 15 GM TUBE TOP SCH ×2 (08:16→21:13)
[2020-08-11] MEDS: Polyethylene Glycol 3350 17 GM Packet PO SCH (08:16)
[2020-08-11] MEDS: Triamcinolone 0.1% Cream 15 GM TUBE TOP SCH ×2 (08:16→21:13)
[2020-08-11] MEDS: Triple Antibiotic Oint 1 GM Packet TOP SCH ×3 (08:16→21:12)
[2020-08-11] MEDS: HumaLOG 300 UNITS/3 ML VIAL SC PRN ×3 (08:17→17:14)
[2020-08-11] MEDS: Lantus 1000 UNITS/10 ML VIAL SC SCH (08:28)
[2020-08-11] MEDS: Acetaminophen 325 MG TAB PO PRN (10:52)
[2020-08-11] MEDS: Atorvastatin Calcium 10 MG TAB PO SCH (21:12)
[2020-08-12] MEDS: Triple Antibiotic Oint 1 GM Packet TOP SCH ×3 (08:39→21:59)
[2020-08-12] MEDS: Aspirin 325 MG TAB PO SCH (08:39)
[2020-08-12] MEDS: Polyethylene Glycol 3350 17 GM Packet PO SCH (08:39)
[2020-08-12] MEDS: Carvedilol 12.5 MG TAB PO SCH ×2 (08:40→16:48)
[2020-08-12] MEDS: Losartan Potassium 50 MG TAB PO SCH (08:40)
[2020-08-12] MEDS: lamoTRIgine 25 MG TAB PO SCH (08:40)
[2020-08-12] MEDS: hydrALAZINE 25 MG TAB PO SCH ×3 (08:40→21:57)
[2020-08-12] MEDS: Triamcinolone 0.1% Cream 15 GM TUBE TOP SCH (08:41)
[2020-08-12] MEDS: Lantus 1000 UNITS/10 ML VIAL SC SCH (08:41)
[2020-08-12] MEDS: Clotrimazole 1% Cream 15 GM TUBE TOP SCH (08:42)
[2020-08-12] MEDS: HumaLOG 300 UNITS/3 ML VIAL SC PRN ×4 (08:48→22:09)
[2020-08-12] MEDS: Atorvastatin Calcium 10 MG TAB PO SCH (21:59)
[2020-08-13] MEDS: Triple Antibiotic Oint 1 GM Packet TOP SCH ×3 (08:46→21:28)
[2020-08-13] MEDS: Aspirin 325 MG TAB PO SCH (08:46)
[2020-08-13] MEDS: Losartan Potassium 50 MG TAB PO SCH (08:46)
[2020-08-13] MEDS: hydrALAZINE 25 MG TAB PO SCH ×3 (08:46→21:27)
[2020-08-13] MEDS: lamoTRIgine 25 MG TAB PO SCH (08:46)
[2020-08-13] MEDS: Carvedilol 12.5 MG TAB PO SCH ×2 (08:46→17:00)
[2020-08-13] MEDS: Lantus 1000 UNITS/10 ML VIAL SC SCH (08:47)
[2020-08-13] MEDS: Polyethylene Glycol 3350 17 GM Packet PO SCH (08:48)
[2020-08-13] MEDS ORDERED: Insulin Glargine 20 UNITS in Pre-Filled Syringe 1 EACH SC SCH (09:00)
[2020-08-13] MEDS: HumaLOG 300 UNITS/3 ML VIAL SC PRN ×3 (12:11→21:34)
[2020-08-13] MEDS: Atorvastatin Calcium 10 MG TAB PO SCH (21:28)
[2020-08-14] MEDS: hydrALAZINE 25 MG TAB PO SCH ×3 (08:51→21:36)
[2020-08-14] MEDS: Losartan Potassium 50 MG TAB PO SCH (08:52)
[2020-08-14] MEDS: Aspirin 325 MG TAB PO SCH (08:52)
[2020-08-14] MEDS: Carvedilol 12.5 MG TAB PO SCH ×2 (08:52→17:12)
[2020-08-14] MEDS: lamoTRIgine 25 MG TAB PO SCH (08:52)
[2020-08-14] MEDS: Lantus 1000 UNITS/10 ML VIAL SC SCH (08:56)
[2020-08-14] MEDS: HumaLOG 300 UNITS/3 ML VIAL SC PRN ×3 (08:56→17:13)
[2020-08-14] MEDS: Triple Antibiotic Oint 1 GM Packet TOP SCH ×3 (08:59→21:37)
[2020-08-14] MEDS: Polyethylene Glycol 3350 17 GM Packet PO SCH (09:00)
[2020-08-14] MEDS: Atorvastatin Calcium 10 MG TAB PO SCH (21:36)
[2020-08-15] MEDS: Polyethylene Glycol 3350 17 GM Packet PO SCH (08:10)
[2020-08-15] MEDS: Lantus 1000 UNITS/10 ML VIAL SC SCH (08:11)
[2020-08-15] MEDS: HumaLOG 300 UNITS/3 ML VIAL SC PRN ×4 (08:11→21:42)
[2020-08-15] MEDS: hydrALAZINE 25 MG TAB PO SCH ×3 (08:12→21:36)
[2020-08-15] MEDS: Aspirin 325 MG TAB PO SCH (08:13)
[2020-08-15] MEDS: lamoTRIgine 25 MG TAB PO SCH (08:13)
[2020-08-15] MEDS: Carvedilol 12.5 MG TAB PO SCH ×2 (08:13→17:14)
[2020-08-15] MEDS: Triple Antibiotic Oint 1 GM Packet TOP SCH ×3 (08:14→21:37)
[2020-08-15] MEDS: Losartan Potassium 50 MG TAB PO SCH (08:14)
[2020-08-15] MEDS: Atorvastatin Calcium 10 MG TAB PO SCH (21:37)
[2020-08-15] MEDS: Acetaminophen 325 MG TAB PO PRN (21:40)
[2020-08-16] MEDS: Polyethylene Glycol 3350 17 GM Packet PO SCH (08:14)
[2020-08-16] MEDS: Triple Antibiotic Oint 1 GM Packet TOP SCH ×3 (08:15→20:56)
[2020-08-16] MEDS: Carvedilol 12.5 MG TAB PO SCH ×2 (08:16→17:07)
[2020-08-16] MEDS: Aspirin 325 MG TAB PO SCH (08:16)
[2020-08-16] MEDS: lamoTRIgine 25 MG TAB PO SCH (08:16)
[2020-08-16] MEDS: Losartan Potassium 50 MG TAB PO SCH (08:16)
[2020-08-16] MEDS: hydrALAZINE 25 MG TAB PO SCH ×3 (08:16→20:55)
[2020-08-16] MEDS: Acetaminophen 325 MG TAB PO PRN (08:20)
[2020-08-16] MEDS: Lantus 1000 UNITS/10 ML VIAL SC SCH (08:26)
[2020-08-16] MEDS: HumaLOG 300 UNITS/3 ML VIAL SC PRN ×2 (11:50→17:07)
[2020-08-16] MEDS: Atorvastatin Calcium 10 MG TAB PO SCH (20:55)
[2020-08-17] MEDS: Carvedilol 12.5 MG TAB PO SCH (08:27)
[2020-08-17] MEDS: Triple Antibiotic Oint 1 GM Packet TOP SCH (08:28)
[2020-08-17] MEDS: hydrALAZINE 25 MG TAB PO SCH (08:28)
[2020-08-17] MEDS: Aspirin 325 MG TAB PO SCH (08:28)
[2020-08-17] MEDS: Losartan Potassium 50 MG TAB PO SCH (08:28)
[2020-08-17] MEDS: Acetaminophen 325 MG TAB PO PRN (08:29)
[2020-08-17] MEDS: lamoTRIgine 25 MG TAB PO SCH (08:29)
[2020-08-17] MEDS: Polyethylene Glycol 3350 17 GM Packet PO SCH (08:30)
[2020-08-17] MEDS: Lantus 1000 UNITS/10 ML VIAL SC SCH (08:34)
[2020-08-17 09:25] VITALS: TEMP 98.3
[2020-08-17] MEDS: HumaLOG 300 UNITS/3 ML VIAL SC PRN (12:24)
[2020-08-17 13:08] VITALS: BP 118/63
--- NOTE | 2020-08-18 02:24 | DIS ---
DATE OF ADMISSION: 08/05/2020 DATE OF DISCHARGE: 08/17/2020 REASON FOR ADMISSION: Deconditioning and general weakness after recent hospitalization. DISCHARGE DIAGNOSES: 1. Seizure disorder, subclinical, new onset. 2. Hypertensive urgency, controlled. 3. Diabetes type 2 with history of hypoglycemia secondary to inadvertent erroneous use of insulin at home. 4. History of depression and anxiety, resolved. 5. History of restless legs syndrome. 6. Dyslipidemia. 7. Morbid obesity, BMI of 35. 8. History of hypomagnesemia. 9. Physical deconditioning. 10. Unsteadiness of gait. DISPOSITION: Home. CONDITION ON DISCHARGE: Stable. HOME MEDICATIONS: 1. Hydralazine 75 mg p.o. three times a day. 2. Aspirin 325 mg p.o. daily. 3. Carvedilol 25 mg p.o. b.i.d. 4. Lamotrigine 100 mg p.o. daily. 5. Atorvastatin 10 mg p.o. at bedtime. 6. Losartan 100 mg p.o. daily. 7. MiraLAX 17 g p.o. daily. 8. Furosemide 10 mg p.o. daily p.r.n. for leg edema. 9. Lantus 20 units subcu q.a.m. DIET: 2000 kilocalorie AHA diet. ACTIVITY: To use rolling walker at all times, fall precautions. FOLLOWUP: 1. Follow up with Dr. Celeste on 08/31 at 11 a.m. 2. Follow up with Dr. Caban (neurologist) on 09/13/2020 at 10:30 a.m. 3. Follow up with Dr. Andrews, fine patcher, in 3 to 4 weeks to call for appointment. The patient was referred back to [facility] per request for PT, OT, [facility], diabetic training and education, BP monitoring, and medication supervision. HISTORY OF THE PRESENT ILLNESS AND HOSPITAL COURSE: Ms. Rodriguez is a very pleasant 84-year-old female with significant history of diabetes that is insulin requiring, hypertension, dyslipidemia, obesity, chronic depression, and restless legs syndrome. The patient was admitted initially at [facility] on 07/29/2020 secondary to altered mental status. Apparently, it was reported that the patient inadvertently took more than her regular home insulin dose and she was found to have a blood sugar initially of 19 per EMS and when EMS found her, she was then subsequently transferred to [facility] and subsequently admitted to [facility] in [place]. She was treated for hypertensive urgency. She also noted to have some confusion, intermittent unresponsiveness and jerking movements that Neurology was consulted. Dr. Balderas started her on Keppra. A CT of the brain was unremarkable. The patient. The patient is not a good candidate for MRI secondary to the present pacemaker. The patient did not tolerate the Keppra given her more confusion, agitation, and behaviors. Keppra was subsequently be discontinued and the patient did well. She was transferred then to [facility] on 08/05/2020 due to general weakness. The patient underwent skilled rehab and did well. She was walking 300 feet using her rolling walker with standby assist for transfers and ambulation. During her skilled rehab, the patient had another episode (3rd time) of unresponsiveness. Repeat CT of the brain was unremarkable. The patient spontaneously woke up, awake, alert, and oriented and was back to her baseline since. Dr. Caban was reconsulted and the patient was started on Lamictal. The patient did well with Lamictal and there was no recurrence of seizure like activities, tremors, or jerking during the rehab stay. Likewise, patient's blood pressure medications as well as insulin dose were readjusted during her stay. It was deemed that the patient may benefit and be more compliant with long-acting basal insulin than short-acting insulin. Her insulin was changed from Novolin 70/30 to Lantus 1 unit daily. Overall, glycemic control has been stable prior to discharge. On 08/05/2020, the patient was adamant to go home. After talking to the family, it was the decision of the patient that her niece would be with her for 07/01 supervision. The patient is not recommended to be by herself nor to drive until further recommendations from the neurologist. The patient is highly recommended to follow up with Dr. Caban. Appointment was made prior to discharge. Her rehab for her overall functional and mobility status has improved prior to discharge, but overall rehab goal not met yet, thus she was referred to continue therapy at home via home health. VITAL SIGNS: Prior to discharge; blood pressure 156/84, temperature 98.3, pulse 74, respirations 20, O2 sats 95% on room air. Height 5 feet 6 inches, weight 280 pounds. The patient was evaluated prior to discharge and was deemed clinically stable, hemodynamically stable to go home per the family. Daughter is here to pick up worker the patient. Time spent on this discharge is 32 minutes in examining the patient, coordinating care, and counseling. Job ID: [id number]
== END 2020-08-17 14:10 | disposition home or self-care (01) | DRG 948 ==
LOC: MADMS 19:45
PROVIDERS: ADMIT Family Medicine; ATTEND Family Medicine
DX: R53.1 Weakness (principal); R53.81 Other malaise; E11.9 Type 2 diabetes mellitus without complications; I10 Essential (primary) hypertension; E78.5 Hyperlipidemia, unspecified; K21.9 Gastro-esophageal reflux disease without esophagitis; F32.9 Major depressive disorder, single episode, unspecified; F41.9 Anxiety disorder, unspecified; G40.909 Epilepsy, unspecified, not intractable, without status epilepticus; G25.81 Restless legs syndrome; R26.81 Unsteadiness on feet; I16.0 Hypertensive urgency; E66.01 Morbid (severe) obesity due to excess calories; Z85.3 Personal history of malignant neoplasm of breast; Z95.0 Presence of cardiac pacemaker; Z90.710 Acquired absence of both cervix and uterus; Z90.12 Acquired absence of left breast and nipple; Z88.0 Allergy status to penicillin; Z88.8 Allergy status to other drugs, medicaments and biological substances; Z79.82 Long term (current) use of aspirin; Z79.4 Long term (current) use of insulin; Z68.35 Body mass index [BMI] 35.0-35.9, adult
CPT/HCPCS: 36416; 70450; 71045; 80053; 81001; 82553; 83036; 83735; 84439; 84443; 84484; 85025; 36415-59; J0360; J1815

== ENCOUNTER 2020-08-19 13:57 | Emergency (ER) | payer MEDICARE ==
[2020-08-19 14:48] LABS: #Basophils 0.1 thou/uL (0.0-0.2); #Eosinphils 0.1 thou/uL (0.0-0.7); #Lymphocytes 1.2 thou/uL (1.20-3.40); #Monocytes 0.4 thou/uL (0.11-0.59); #Neutrophils 5.1 thou/uL (1.40-6.50); %Basophils 1.6 % (0.0-1.0); %Eosinophils 1.9 % (0.0-10.0); %Lymphocytes 17.4 % (21.0-51.0); %Monocytes 6.4 % (0.0-10.0); %Neutrophils 72.7 % (42.0-75.0); Hemoglobin 10.4 g/dL (12.0-16.0); Mean Corpuscular HGB CONC 30.7 g/dL (32.0-36.0); Mean Corpuscular Hemoglobin 27.9 pg (27.0-31.0); Mean Platelet Volume 5.9 fL (7.4-10.4); Platelet Count 208 thou/uL (130-400); RBC Distribution Width 16.1 % (11.5-14.5); Red Blood Cell (RBC) Count 3.73 mill/uL (4.20-5.40)
[2020-08-19 15:05] LABS: ALT (SGPT) 44 U/L (8-55); AST (SGOT) 43 U/L (5-34); Albumin 3.9 g/dL (3.4-4.8); Alkaline Phosphatase 94 U/L (40-110); Anion Gap 12 mmol/L (10-20); BUN (Urea Nitrogen) 25 mg/dL (9.8-20.1); Bilirubin, Total 0.7 mg/dL (0.2-1.2); Calc. Creatinine Clearance 0 mL/min (70-130); Calcium 9.9 mg/dL (7.8-10.44); Carbon Dioxide 26 mmol/L (23-31); Chloride 106 mmol/L (98-107); Glucose 208 mg/dL (83-110); Potassium 4.5 mmol/L (3.5-5.1); Protein, Total 6.9 g/dL (5.8-8.1); Sodium 139 mmol/L (136-145)
[2020-08-19] MEDS ORDERED: Nitroglycerin 0.4 MG TAB 1 EACH ONE (16:09)
[2020-08-19] MEDS ORDERED: Furosemide 40 MG/4 ML VIAL ONE (16:09)
[2020-08-19] MEDS ORDERED: Nitroglycerin 2% Ointment 1 INCH/1 GM Packet ONE (18:02)
== END 2020-08-19 18:20 | disposition short-term general hospital (02) ==
LOC: MADERS 13:57
DX: I11.0 Hypertensive heart disease with heart failure (principal); I50.9 Heart failure, unspecified; E78.5 Hyperlipidemia, unspecified; E78.00 Pure hypercholesterolemia, unspecified; E11.9 Type 2 diabetes mellitus without complications; Z79.82 Long term (current) use of aspirin; Z79.4 Long term (current) use of insulin; Z79.899 Other long term (current) drug therapy
CPT/HCPCS: 36415; 71045; 80053; 82553; 83880; 84484; 85025; 93005; 96374; J1940

== ENCOUNTER 2020-09-11 22:34 | Emergency (ER) | payer MEDICARE ==
[2020-09-11] MEDS ORDERED: Furosemide 40 MG/4 ML VIAL ONE (22:59)
[2020-09-11 23:03] LABS: #Basophils 0.2 thou/uL (0.0-0.2); #Eosinphils 0.1 thou/uL (0.0-0.7); #Lymphocytes 1.2 thou/uL (1.20-3.40); #Monocytes 0.5 thou/uL (0.11-0.59); #Neutrophils 7.8 thou/uL (1.40-6.50); %Basophils 1.7 % (0.0-1.0); %Eosinophils 1.3 % (0.0-10.0); %Lymphocytes 11.9 % (21.0-51.0); %Monocytes 4.7 % (0.0-10.0); %Neutrophils 80.5 % (42.0-75.0); Hemoglobin 11.3 g/dL (12.0-16.0); Mean Corpuscular HGB CONC 31.3 g/dL (32.0-36.0); Mean Corpuscular Hemoglobin 28.4 pg (27.0-31.0); Mean Corpuscular Volume 90.8 fL (78.0-98.0); Mean Platelet Volume 7.4 fL (7.4-10.4); Platelet Count 227 thou/uL (130-400); RBC Distribution Width 16.1 % (11.5-14.5); Red Blood Cell (RBC) Count 3.99 mill/uL (4.20-5.40); White Blood Cell (WBC) Count 9.7 thou/uL (4.8-10.8)
[2020-09-11 23:23] LABS: ALT (SGPT) 28 U/L (8-55); AST (SGOT) 27 U/L (5-34); Albumin 4.1 g/dL (3.4-4.8); Alkaline Phosphatase 97 U/L (40-110); Anion Gap 16 mmol/L (10-20); BUN (Urea Nitrogen) 22 mg/dL (9.8-20.1); Bilirubin, Total 0.8 mg/dL (0.2-1.2); Calc. Creatinine Clearance 0 mL/min (70-130); Calcium 9.7 mg/dL (7.8-10.44); Carbon Dioxide 26 mmol/L (23-31); Chloride 104 mmol/L (98-107); Globulin 2.7 g/dL (2.4-3.5); Glucose 240 mg/dL (83-110); Protein, Total 6.8 g/dL (5.8-8.1); Sodium 142 mmol/L (136-145)
== END 2020-09-12 01:27 | disposition short-term general hospital (02) ==
LOC: MADERS 22:34
DX: I11.0 Hypertensive heart disease with heart failure (principal); I50.9 Heart failure, unspecified; E11.9 Type 2 diabetes mellitus without complications; E78.5 Hyperlipidemia, unspecified; E78.00 Pure hypercholesterolemia, unspecified; Z79.82 Long term (current) use of aspirin; Z79.4 Long term (current) use of insulin; Z79.899 Other long term (current) drug therapy
CPT/HCPCS: 71045; 80053; 83880; 84484; 85025; 93005; 94760; 96374; J1940

== ENCOUNTER 2020-09-30 12:52 | Outpatient (CLI) | payer MEDICARE ==
[2020-09-30 13:25] LABS: Anion Gap 17 mmol/L (10-20); BUN (Urea Nitrogen) 17 mg/dL (9.8-20.1); Calc. Creatinine Clearance 0 mL/min (70-130); Calcium 9.9 mg/dL (7.8-10.44); Carbon Dioxide 27 mmol/L (23-31); Chloride 100 mmol/L (98-107); Glucose 333 mg/dL (83-110); Potassium 4.6 mmol/L (3.5-5.1); Sodium 139 mmol/L (136-145)
== END 2020-09-30 12:53 | disposition home or self-care (01) ==
LOC: MADLAB 12:52
PROVIDERS: ATTEND Family Medicine
DX: I11.0 Hypertensive heart disease with heart failure (principal); I50.9 Heart failure, unspecified; E87.6 Hypokalemia
CPT/HCPCS: 80048

== ENCOUNTER 2020-11-15 11:18 | Emergency (ER) | payer MEDICARE ==
[2020-11-15 12:01] LABS: #Basophils 0.1 thou/uL (0.0-0.2); #Eosinphils 0.1 thou/uL (0.0-0.7); #Lymphocytes 1.4 thou/uL (1.20-3.40); #Monocytes 0.5 thou/uL (0.11-0.59); #Neutrophils 6.6 thou/uL (1.40-6.50); %Basophils 1.4 % (0.0-1.0); %Eosinophils 1.5 % (0.0-10.0); %Lymphocytes 16.4 % (21.0-51.0); %Monocytes 5.7 % (0.0-10.0); %Neutrophils 75.1 % (42.0-75.0); Hemoglobin 12.8 g/dL (12.0-16.0); Mean Corpuscular HGB CONC 30.6 g/dL (32.0-36.0); Mean Corpuscular Hemoglobin 27.9 pg (27.0-31.0); Mean Corpuscular Volume 91.3 fL (78.0-98.0); Mean Platelet Volume 7.6 fL (7.4-10.4); Platelet Count 242 thou/uL (130-400); RBC Distribution Width 14.7 % (11.5-14.5); Red Blood Cell (RBC) Count 4.59 mill/uL (4.20-5.40); White Blood Cell (WBC) Count 8.8 thou/uL (4.8-10.8)
[2020-11-15 12:19] LABS: ALT (SGPT) 13 U/L (8-55); AST (SGOT) 14 U/L (5-34); Albumin 4.2 g/dL (3.4-4.8); Alkaline Phosphatase 90 U/L (40-110); Anion Gap 14 mmol/L (10-20); BUN (Urea Nitrogen) 19 mg/dL (9.8-20.1); Calc. Creatinine Clearance 0 mL/min (70-130); Calcium 10.2 mg/dL (7.8-10.44); Carbon Dioxide 25 mmol/L (23-31); Chloride 104 mmol/L (98-107); Globulin 2.9 g/dL (2.4-3.5); Glucose 225 mg/dL (83-110); Potassium 4.1 mmol/L (3.5-5.1); Protein, Total 7.1 g/dL (5.8-8.1); Sodium 139 mmol/L (136-145)
[2020-11-15 12:59] LABS: Bilirubin Negative (Negative); Blood, Urine Trace (Negative); Clarity Clear (Clear); Glucose, Urine (Dipstick) Negative (Negative); Ketone, Urine Negative (Negative); Leukocyte Negative (Negative); Nitrite Negative (Negative); Protein, Urine (Dipstick) 100 mg/dL (Neg-Trace); Urobilinogen 0.2 mg/dL (Less than 2); pH, Urine 6.5 (5.0-9.0)
[2020-11-15 13:01] LABS: Bacteria/HPF Rare-Few HPF (None Seen); RBC/HPF 0-3 HPF (0-3); Squamous Epithelial 0-3 HPF (0-3); WBC/HPF 0-3 HPF (0-3)
[2020-11-15] MEDS ORDERED: Aspirin Chewable 81 MG TAB ONE (13:38)
[2020-11-15] MEDS ORDERED: Losartan 25 MG TAB ONE (13:38)
== END 2020-11-15 20:42 | disposition short-term general hospital (02) ==
LOC: MADERS 11:18
DX: R07.2 Precordial pain (principal); R51.9 Headache, unspecified; J18.9 Pneumonia, unspecified organism; I11.0 Hypertensive heart disease with heart failure; I50.9 Heart failure, unspecified; E11.9 Type 2 diabetes mellitus without complications; E78.5 Hyperlipidemia, unspecified; E78.00 Pure hypercholesterolemia, unspecified; Z79.82 Long term (current) use of aspirin; Z79.899 Other long term (current) drug therapy
CPT/HCPCS: 71045; 80053; 81003; 81015; 83880; 84484; 85025; 93005

== ENCOUNTER 2021-02-23 11:27 | Emergency (ER) | payer MEDICARE ==
[2021-02-23] MEDS ORDERED: Nitroglycerin 0.4 MG TAB 1 EACH ONE (12:06)
[2021-02-23] MEDS ORDERED: Aspirin Chewable 81 MG TAB ONE (12:07)
[2021-02-23 12:19] LABS: #Basophils 0.1 thou/uL (0.0-0.2); #Eosinphils 0.1 thou/uL (0.0-0.7); #Lymphocytes 1.2 thou/uL (1.20-3.40); #Monocytes 0.5 thou/uL (0.11-0.59); #Neutrophils 8.9 thou/uL (1.40-6.50); %Basophils 0.9 % (0.0-1.0); %Eosinophils 1.2 % (0.0-10.0); %Lymphocytes 11.3 % (21.0-51.0); %Monocytes 4.7 % (0.0-10.0); %Neutrophils 81.9 % (42.0-75.0); Hemoglobin 11.4 g/dL (12.0-16.0); Mean Corpuscular HGB CONC 31.8 g/dL (32.0-36.0); Mean Corpuscular Hemoglobin 28.9 pg (27.0-31.0); Mean Corpuscular Volume 90.9 fL (78.0-98.0); Mean Platelet Volume 6.8 fL (7.4-10.4); Platelet Count 232 thou/uL (130-400); RBC Distribution Width 14.3 % (11.5-14.5); Red Blood Cell (RBC) Count 3.93 mill/uL (4.20-5.40); White Blood Cell (WBC) Count 10.8 thou/uL (4.8-10.8)
[2021-02-23 12:26] LABS: INR-International Normal Ratio 1.3; PTT 41.2 sec (22.9-36.1)
[2021-02-23 12:36] LABS: ALT (SGPT) 12 U/L (8-55); AST (SGOT) 12 U/L (5-34); Albumin 3.8 g/dL (3.4-4.8); Alkaline Phosphatase 90 U/L (40-110); Anion Gap 13 mmol/L (10-20); BUN (Urea Nitrogen) 14 mg/dL (9.8-20.1); Bilirubin, Total 0.7 mg/dL (0.2-1.2); Calc. Creatinine Clearance 0 mL/min (70-130); Calcium 10.2 mg/dL (7.8-10.44); Carbon Dioxide 27 mmol/L (23-31); Chloride 103 mmol/L (98-107); Globulin 3.2 g/dL (2.4-3.5); Glucose 186 mg/dL (83-110); Potassium 4.1 mmol/L (3.5-5.1); Sodium 139 mmol/L (136-145)
[2021-02-23] MEDS ORDERED: Nitroglycerin 2% Ointment 1 INCH/1 GM Packet ONE (13:28)
[2021-02-23] MEDS ORDERED: Ondansetron PF 4 MG/2 ML Vial ONE (14:13)
[2021-02-23 15:26] LABS: Troponin I 0.055 ng/mL (< 0.028)
== END 2021-02-24 04:47 | disposition short-term general hospital (02) ==
LOC: MADERS 11:27
DX: R07.9 Chest pain, unspecified (principal); R11.0 Nausea; E11.9 Type 2 diabetes mellitus without complications; E78.5 Hyperlipidemia, unspecified; E78.00 Pure hypercholesterolemia, unspecified; I11.0 Hypertensive heart disease with heart failure; I50.9 Heart failure, unspecified; Z79.82 Long term (current) use of aspirin; Z79.4 Long term (current) use of insulin; Z79.899 Other long term (current) drug therapy
CPT/HCPCS: 36415; 71045; 80053; 83880; 84484; 85025; 85610; 85730; 93005; 96374; J2405

== ENCOUNTER 2021-03-27 06:30 | Inpatient (IN) | payer MEDICARE ==
[2021-03-27 07:06] LABS: #Basophils 0.1 thou/uL (0.0-0.2); #Eosinphils 0.1 thou/uL (0.0-0.7); #Lymphocytes 1.4 thou/uL (1.20-3.40); #Monocytes 0.6 thou/uL (0.11-0.59); %Basophils 0.9 % (0.0-1.0); %Eosinophils 1.1 % (0.0-10.0); %Lymphocytes 12.7 % (21.0-51.0); %Monocytes 5.2 % (0.0-10.0); %Neutrophils 80.1 % (42.0-75.0); Hemoglobin 11.8 g/dL (12.0-16.0); Mean Corpuscular HGB CONC 29.9 g/dL (32.0-36.0); Mean Corpuscular Hemoglobin 27.9 pg (27.0-31.0); Mean Corpuscular Volume 93.3 fL (78.0-98.0); Mean Platelet Volume 6.5 fL (7.4-10.4); Platelet Count 285 thou/uL (130-400); RBC Distribution Width 15.5 % (11.5-14.5); Red Blood Cell (RBC) Count 4.23 mill/uL (4.20-5.40); White Blood Cell (WBC) Count 11.2 thou/uL (4.8-10.8)
[2021-03-27 07:20] LABS: ALT (SGPT) 17 U/L (8-55); AST (SGOT) 26 U/L (5-34); Alkaline Phosphatase 98 U/L (40-110); Anion Gap 16 mmol/L (10-20); BUN (Urea Nitrogen) 16 mg/dL (9.8-20.1); Bilirubin, Total 1.1 mg/dL (0.2-1.2); Calc. Creatinine Clearance 0 mL/min (70-130); Calcium 10.3 mg/dL (7.8-10.44); Carbon Dioxide 24 mmol/L (23-31); Chloride 104 mmol/L (98-107); Globulin 2.7 g/dL (2.4-3.5); Glucose 127 mg/dL (83-110); Lipase 36 U/L (8-78); Magnesium 1.6 mg/dL (1.6-2.6); Potassium 4.4 mmol/L (3.5-5.1); Protein, Total 6.7 g/dL (5.8-8.1); Sodium 140 mmol/L (136-145)
[2021-03-27 07:21] LABS: Base Excess-Venous 2.8 mmol/L (-2.0 to 3.0); Bicarbonate (HCO3v) 28.6 mmol/L (22.0-28.0); CO2 Tension (PvCO2) 47.5 mmHg (42.0-51.0); Calcium, Ionized 1.34 mmol/L (1.15-1.33); Chloride 104 mmol/L (98-107); Hemoglobin - Calc 12.6 g/dL (12.0-16.0); Potassium 4.3 mmol/L (3.5-5.1); Sodium 141 mmol/L (138-145)
[2021-03-27] MEDS ORDERED: Furosemide 40 MG/4 ML VIAL ONE (07:34)
[2021-03-27 08:22] LABS: SARS-CoV-2 NAA Rapid Test Not Detected (NotDetected)
[2021-03-27] MEDS ORDERED: Aspirin Chewable 81 MG TAB PO SCH (11:15)
[2021-03-27] MEDS ORDERED: Nitroglycerin 0.4 MG TAB (25 Tab Bottle) SL PRN (11:27)
[2021-03-27] MEDS ORDERED: Aspirin 325 MG TAB PO SCH ×2 (12:45→14:15)
[2021-03-27] MEDS ORDERED: lamoTRIgine 25 MG TAB PO SCH (14:15)
[2021-03-27] MEDS ORDERED: NIFEdipine XL 30 MG TAB PO SCH (14:15)
[2021-03-27] MEDS ORDERED: Nystatin Cream 15 GM TUBE TOP PRN (14:42)
[2021-03-27] MEDS: Furosemide 40 MG/4 ML VIAL SLOW IVP SCH ×2 (14:50→15:35)
[2021-03-27] MEDS ORDERED: Dextrose 50% Abboject 50 ML SYRINGE IVP PRN (15:30)
[2021-03-27] MEDS ORDERED: HumaLOG 300 UNITS/3 ML VIAL SC PRN (15:30)
[2021-03-27] MEDS ORDERED: Dextrose 5% in Water 1,000 ML IV PRN (15:30)
[2021-03-27] MEDS ORDERED: Furosemide 40 MG TAB PO SCH (15:45)
[2021-03-27] MEDS ORDERED: Carvedilol 12.5 MG TAB PO SCH (17:00)
[2021-03-27] MEDS: Carvedilol 12.5 MG TAB PO SCH (17:08)
[2021-03-27] MEDS: HumaLOG 300 UNITS/3 ML VIAL SC PRN (17:08)
[2021-03-27] MEDS: Ezetimibe 10 MG TAB PO SCH (20:46)
[2021-03-27] MEDS: Atorvastatin Calcium 10 MG TAB PO SCH (20:46)
[2021-03-27] MEDS: Nystatin Cream 15 GM TUBE TOP SCH (20:52)
[2021-03-27] MEDS ORDERED: Acetaminophen 325 MG TAB PO PRN (23:01)
[2021-03-28 05:30] LABS: Anion Gap 16 mmol/L (10-20); BUN (Urea Nitrogen) 21 mg/dL (9.8-20.1); Calc. Creatinine Clearance 35 mL/min (70-130); Calcium 10.6 mg/dL (7.8-10.44); Carbon Dioxide 27 mmol/L (23-31); Chloride 99 mmol/L (98-107); Glucose 216 mg/dL (83-110); Potassium 3.5 mmol/L (3.5-5.1); Sodium 138 mmol/L (136-145)
[2021-03-28] MEDS ORDERED: Furosemide 40 MG TAB PO SCH (07:30)
[2021-03-28] MEDS: Carvedilol 12.5 MG TAB PO SCH ×2 (07:57→17:23)
[2021-03-28] MEDS: HumaLOG 300 UNITS/3 ML VIAL SC PRN ×2 (08:01→11:46)
[2021-03-28] MEDS: Aspirin 325 MG TAB PO SCH (08:45)
[2021-03-28] MEDS: Enoxaparin Sodium 40 MG/0.4 ML SYRINGE SC SCH (08:45)
[2021-03-28] MEDS: Losartan Potassium 50 MG TAB PO SCH (08:46)
[2021-03-28] MEDS: lamoTRIgine 25 MG TAB PO SCH (08:46)
[2021-03-28] MEDS: NIFEdipine XL 30 MG TAB PO SCH (08:47)
[2021-03-28] MEDS: Nystatin Cream 15 GM TUBE TOP SCH ×2 (08:50→21:02)
[2021-03-28] MEDS: Lantus 1000 UNITS/10 ML VIAL SC SCH (08:53)
[2021-03-28] MEDS ORDERED: Aspirin Chewable 81 MG TAB PO SCH (09:00)
[2021-03-28] MEDS ORDERED: Potassium Chloride 20 MEQ TAB PO SCH (13:00)
[2021-03-28] MEDS: Potassium Chloride 20 MEQ TAB PO SCH (13:28)
[2021-03-28] MEDS: Ezetimibe 10 MG TAB PO SCH (21:01)
[2021-03-28] MEDS: Atorvastatin Calcium 10 MG TAB PO SCH (21:01)
[2021-03-29] MEDS: Enoxaparin Sodium 40 MG/0.4 ML SYRINGE SC SCH (09:16)
[2021-03-29] MEDS: Aspirin 325 MG TAB PO SCH (09:16)
[2021-03-29] MEDS: Carvedilol 12.5 MG TAB PO SCH ×2 (09:17→17:06)
[2021-03-29] MEDS: NIFEdipine XL 30 MG TAB PO SCH (09:17)
[2021-03-29] MEDS: lamoTRIgine 25 MG TAB PO SCH (09:17)
[2021-03-29] MEDS: Losartan Potassium 50 MG TAB PO SCH (09:17)
[2021-03-29] MEDS: Furosemide 20 MG TAB PO SCH (09:17)
[2021-03-29] MEDS: Lantus 1000 UNITS/10 ML VIAL SC SCH (09:22)
[2021-03-29] MEDS: Nystatin Cream 15 GM TUBE TOP SCH ×2 (09:23→20:28)
[2021-03-29] MEDS: HumaLOG 300 UNITS/3 ML VIAL SC PRN (12:32)
[2021-03-29 13:30] VITALS: BMI 29.2
[2021-03-29] MEDS: Ezetimibe 10 MG TAB PO SCH (20:28)
[2021-03-29] MEDS: Atorvastatin Calcium 10 MG TAB PO SCH (20:28)
[2021-03-30 07:28] LABS: Hemoglobin 12.2 g/dL (12.0-16.0); Mean Corpuscular HGB CONC 30.3 g/dL (32.0-36.0); Mean Corpuscular Hemoglobin 28.2 pg (27.0-31.0); Mean Corpuscular Volume 93.3 fL (78.0-98.0); Mean Platelet Volume 6.1 fL (7.4-10.4); Platelet Count 238 thou/uL (130-400); RBC Distribution Width 15.1 % (11.5-14.5); Red Blood Cell (RBC) Count 4.31 mill/uL (4.20-5.40); White Blood Cell (WBC) Count 8.2 thou/uL (4.8-10.8)
[2021-03-30 07:58] LABS: Anion Gap 17 mmol/L (10-20); BUN (Urea Nitrogen) 25 mg/dL (9.8-20.1); Calc. Creatinine Clearance 38 mL/min (70-130); Calcium 10.3 mg/dL (7.8-10.44); Carbon Dioxide 26 mmol/L (23-31); Chloride 102 mmol/L (98-107); Glucose 120 mg/dL (83-110); Potassium 4.5 mmol/L (3.5-5.1); Sodium 140 mmol/L (136-145)
[2021-03-30] MEDS: Enoxaparin Sodium 40 MG/0.4 ML SYRINGE SC SCH (08:45)
[2021-03-30] MEDS: lamoTRIgine 25 MG TAB PO SCH (08:46)
[2021-03-30] MEDS: Aspirin 325 MG TAB PO SCH (08:46)
[2021-03-30] MEDS: NIFEdipine XL 30 MG TAB PO SCH (08:46)
[2021-03-30] MEDS: Lantus 1000 UNITS/10 ML VIAL SC SCH (08:46)
[2021-03-30] MEDS: Carvedilol 12.5 MG TAB PO SCH (08:46)
[2021-03-30] MEDS: Furosemide 20 MG TAB PO SCH (08:47)
[2021-03-30] MEDS: Losartan Potassium 50 MG TAB PO SCH (08:47)
[2021-03-30] MEDS: Potassium Chloride 20 MEQ TAB PO SCH (08:47)
[2021-03-30] MEDS: Nystatin Cream 15 GM TUBE TOP SCH (08:50)
[2021-03-30 11:51] VITALS: BP 100/66; TEMP 97.5
[2021-03-30] MEDS: HumaLOG 300 UNITS/3 ML VIAL SC PRN (12:02)
== END 2021-03-30 14:25 | disposition home or self-care (01) | DRG 291 ==
LOC: MADERS 06:30 → MADMS 09:41
PROVIDERS: ADMIT Family Medicine; ATTEND Family Medicine
DX: I13.0 Hypertensive heart and chronic kidney disease with heart failure and stage 1 through stage 4 chronic kidney disease, or unspecified chronic kidney disease (principal); I50.33 Acute on chronic diastolic (congestive) heart failure; E78.2 Mixed hyperlipidemia; Z66 Do not resuscitate; N18.30 Chronic kidney disease, stage 3 unspecified; E11.22 Type 2 diabetes mellitus with diabetic chronic kidney disease; K21.9 Gastro-esophageal reflux disease without esophagitis; Z20.822 Contact with and (suspected) exposure to COVID-19; D64.9 Anemia, unspecified; Z87.898 Personal history of other specified conditions; Z85.3 Personal history of malignant neoplasm of breast; Z88.0 Allergy status to penicillin; Z79.82 Long term (current) use of aspirin; Z79.4 Long term (current) use of insulin; Z79.899 Other long term (current) drug therapy; Z90.710 Acquired absence of both cervix and uterus; Z90.12 Acquired absence of left breast and nipple; Z98.890 Other specified postprocedural states; Z95.0 Presence of cardiac pacemaker; Z88.8 Allergy status to other drugs, medicaments and biological substances
CPT/HCPCS: 36415; 36416; 71045; 71046; 80048; 80053; 82330; 82803; 83605; 83690; 83735; 83880; 84484; 85014; 85025; 85027; 93005; 96374; J1650; J1815; J1940; U0002

== ENCOUNTER 2021-07-11 14:01 | Outpatient (CLI) | payer MEDICARE ==
[2021-07-11 14:52] LABS: ALT (SGPT) 10 U/L (8-55); AST (SGOT) 13 U/L (5-34); Albumin 4.1 g/dL (3.4-4.8); Alkaline Phosphatase 84 U/L (40-110); Anion Gap 14 mmol/L (10-20); BUN (Urea Nitrogen) 27 mg/dL (9.8-20.1); Bilirubin, Total 0.7 mg/dL (0.2-1.2); Calc. Creatinine Clearance 0 mL/min (70-130); Calcium 9.9 mg/dL (7.8-10.44); Carbon Dioxide 25 mmol/L (23-31); Cardiac Risk 3.4 (Less than 4.5); Chloride 104 mmol/L (98-107); Cholesterol 121 mg/dl (< 200 Desired); Globulin 2.9 g/dL (2.4-3.5); Glucose 151 mg/dL (83-110); HDL Cholesterol 36 mg/dL (>60 Neg Risk); LDL Cholesterol, Calculated 68 mg/dL; Potassium 4.3 mmol/L (3.5-5.1); Sodium 139 mmol/L (136-145); Triglycerides 86 mg/dL (Less than 150)
[2021-07-11 15:12] LABS: Thyroid Stimulating Hormone 2.8021 uIU/mL (0.35-4.94)
[2021-07-11 21:02] LABS: Hemoglobin A1c 9.2 % (4.0-6.0)
[2021-07-11 21:26] LABS: Free T4 (Free Thyroxine) 0.8 ng/dL (0.70-1.48)
== END 2021-07-11 14:02 | disposition home or self-care (01) ==
LOC: MADLAB 14:01
PROVIDERS: ATTEND Family Medicine
DX: E11.22 Type 2 diabetes mellitus with diabetic chronic kidney disease (principal); N18.9 Chronic kidney disease, unspecified; E78.2 Mixed hyperlipidemia
CPT/HCPCS: 80053; 80061; 83036; 84439; 84443

== ENCOUNTER 2022-09-14 10:44 | Emergency (ER) | payer MEDICARE ==
[2022-09-14] MEDS ORDERED: Ondansetron PF 4 MG/2 ML Vial ONE ×2 (11:15→11:38)
[2022-09-14 11:18] LABS: Bilirubin Negative (Negative); Blood, Urine Trace (Negative); Glucose, Urine (Dipstick) 100 mg/dL (Negative); Ketone, Urine Negative (Negative); Leukocyte Trace (Negative); Nitrite Positive (Negative); Protein, Urine (Dipstick) 30 mg/dL (Neg-Trace); Urobilinogen 0.2 mg/dL (Less than 2)
[2022-09-14 11:29] LABS: Clarity Hazy (Clear)
[2022-09-14 11:38] LABS: Bacteria/HPF 4+ HPF (None Seen); RBC/HPF 0-3 HPF (0-3)
[2022-09-14 11:46] LABS: Anisocytosis SLIGHT = 6-15 cells (100X) (0-5/hpf); Hemoglobin 13.6 g/dL (12.0-16.0); Lymphocytes 11 % (21-51); MDiff Complete? YES; Mean Corpuscular HGB CONC 31.5 g/dL (32.0-36.0); Mean Corpuscular Hemoglobin 29.5 pg (27.0-31.0); Mean Corpuscular Volume 93.8 fl (78.0-98.0); Monocytes 3 % (0-10); Neutrophil 83 % (42-75); Platelet Count 239 10x3/uL (130-400); Platelet Morphology Comment Appears Adequate; RBC Distribution Width 13.8 % (11.5-14.5); Reactive Lymphocytes 3 % (0-10); Red Blood Cell (RBC) Count 4.59 mill/uL (4.20-5.40); White Blood Cell (WBC) Count 8.8 10x3/uL (4.8-10.8)
[2022-09-14 11:50] LABS: ALT (SGPT) 11 U/L (8-55); AST (SGOT) 18 U/L (5-34); Albumin 4.4 g/dL (3.4-4.8); Alkaline Phosphatase 82 U/L (40-110); Anion Gap 16 mmol/L (10-20); BUN (Urea Nitrogen) 23 mg/dL (9.8-20.1); Base Excess-Venous 1.1 mmol/L (-2.0 to 3.0); Bicarbonate (HCO3v) 28.1 mmol/L (22.0-28.0); Bilirubin, Total 0.5 mg/dL (0.2-1.2); CK (CPK) 210 U/L (29-168); CO2 Tension (PvCO2) 52.1 mmHg (42.0-51.0); Calc. Creatinine Clearance 0 mL/min (70-130); Calcium 10.6 mg/dL (7.8-10.44); Calcium, Ionized 1.26 mmol/L (1.15-1.33); Carbon Dioxide 24 mmol/L (23-31); Chloride 103 mmol/L (98-107); Chloride 104 mmol/L (98-107); Estimated GFR 31; Globulin 3.7 g/dL (2.4-3.5); Glucose 171 mg/dL (83-110); Hemoglobin - Calc 16.6 g/dL (12.0-16.0); Lipase 29 U/L (8-78); Magnesium 1.8 mg/dL (1.6-2.6); Potassium 3.6 mmol/L (3.5-5.1); Protein, Total 8.1 g/dL (5.8-8.1); Sodium 139 mmol/L (136-145); Sodium 141 mmol/L (138-145); T. Carbon Dioxide 29.7 mmol/L (22.0-28.0); vO2 Saturation-calc 64.5 % (60.0-85.0)
[2022-09-14] MEDS ORDERED: Levofloxacin 500 mg/D5W 100 ml Premix Bag ONE (12:04)
[2022-09-14 12:57] LABS: SARS-CoV-2 NAA Rapid Test Not Detected (NotDetected)
== END 2022-09-14 12:34 | disposition short-term general hospital (02) ==
LOC: MADERS 10:44
DX: R41.82 Altered mental status, unspecified (principal); M79.81 Nontraumatic hematoma of soft tissue; N39.0 Urinary tract infection, site not specified; E11.9 Type 2 diabetes mellitus without complications; E78.5 Hyperlipidemia, unspecified; I11.0 Hypertensive heart disease with heart failure; I50.9 Heart failure, unspecified; Z79.4 Long term (current) use of insulin; Z20.822 Contact with and (suspected) exposure to COVID-19; Z79.899 Other long term (current) drug therapy
CPT/HCPCS: 36416; 70450; 70496; 70498; 71045; 80053; 81003; 81015; 82330; 82550; 82803; 83605; 83690; 83735; 83880; 84484; 85025; 87040; 87086; 93005; 96365; 96375; J1956; J2405

== ENCOUNTER 2022-09-28 14:56 | Inpatient (IN) | payer MEDICARE ==
[2022-09-28] MEDS ORDERED: Nitroglycerin 0.4 MG TAB (25 Tab Bottle) SL PRN (16:30)
[2022-09-28] MEDS ORDERED: Dextrose 50% Abboject 50 ML SYRINGE SLOW IVP PRN (16:40)
[2022-09-28] MEDS ORDERED: Lantiseptic Ointment 130 GM JAR TOP PRN (16:57)
[2022-09-28] MEDS: HumaLOG 300 UNITS/3 ML VIAL SC PRN (17:24)
[2022-09-28] MEDS ORDERED: Acetaminophen 325 MG TAB PO PRN (18:39)
[2022-09-28] MEDS ORDERED: Acetaminophen 500 MG TAB PO PRN (18:40)
[2022-09-28] MEDS: Nystatin Cream 15 GM TUBE TOP SCH (21:40)
[2022-09-28] MEDS: Lantiseptic Ointment 130 GM JAR TOP SCH (21:40)
[2022-09-28] MEDS: levETIRAcetam 500 MG TAB PO SCH (21:40)
[2022-09-28] MEDS: Atorvastatin Calcium 10 MG TAB PO SCH (21:41)
[2022-09-28] MEDS: Ezetimibe 10 MG TAB PO SCH (21:41)
[2022-09-29] MEDS: lamoTRIgine 25 MG TAB PO SCH (09:23)
[2022-09-29] MEDS: Losartan Potassium 50 MG TAB PO SCH (09:23)
[2022-09-29] MEDS: Aspirin 325 MG TAB PO SCH (09:23)
[2022-09-29] MEDS: levETIRAcetam 500 MG TAB PO SCH ×2 (09:23→20:35)
[2022-09-29] MEDS: HumaLOG 300 UNITS/3 ML VIAL SC PRN ×3 (09:28→20:35)
[2022-09-29] MEDS: Nystatin Cream 15 GM TUBE TOP SCH ×2 (09:32→20:36)
[2022-09-29] MEDS: Lantiseptic Ointment 130 GM JAR TOP SCH ×2 (09:32→20:36)
[2022-09-29] MEDS: Ezetimibe 10 MG TAB PO SCH (20:34)
[2022-09-29] MEDS: Atorvastatin Calcium 10 MG TAB PO SCH (20:35)
[2022-09-30] MEDS: HumaLOG 300 UNITS/3 ML VIAL SC PRN ×4 (08:28→21:01)
[2022-09-30] MEDS: Aspirin 325 MG TAB PO SCH (08:29)
[2022-09-30] MEDS: Losartan Potassium 50 MG TAB PO SCH (08:29)
[2022-09-30] MEDS: levETIRAcetam 500 MG TAB PO SCH ×2 (08:29→20:59)
[2022-09-30] MEDS: lamoTRIgine 25 MG TAB PO SCH (08:30)
[2022-09-30] MEDS: Lantiseptic Ointment 130 GM JAR TOP SCH ×2 (08:32→21:00)
[2022-09-30] MEDS: Nystatin Cream 15 GM TUBE TOP SCH ×2 (08:32→21:00)
[2022-09-30] MEDS: Atorvastatin Calcium 10 MG TAB PO SCH (20:59)
[2022-09-30] MEDS: Ezetimibe 10 MG TAB PO SCH (20:59)
[2022-10-01 05:55] LABS: Hemoglobin 11.1 g/dL (12.0-16.0); Lymphocytes 29 % (21-51); MDiff Complete? YES; Mean Corpuscular HGB CONC 32.6 g/dL (32.0-36.0); Mean Corpuscular Hemoglobin 30.3 pg (27.0-31.0); Mean Platelet Volume 6.6 fL (7.4-10.4); Monocytes 2 % (0-10); Neutrophil 67 % (42-75); Platelet Count 429 10x3/uL (130-400); RBC Distribution Width 14.2 % (11.5-14.5); RBC Morphology Normal; Red Blood Cell (RBC) Count 3.65 mill/uL (4.20-5.40)
[2022-10-01 05:57] LABS: ALT (SGPT) 10 U/L (8-55); AST (SGOT) 9 U/L (5-34); Albumin 3.3 g/dL (3.4-4.8); Alkaline Phosphatase 71 U/L (40-110); Anion Gap 14 mmol/L (10-20); BUN (Urea Nitrogen) 12 mg/dL (9.8-20.1); Bilirubin, Total 0.3 mg/dL (0.2-1.2); Calc. Creatinine Clearance 43 mL/min (70-130); Calcium 11.3 mg/dL (7.8-10.44); Carbon Dioxide 25 mmol/L (23-31); Chloride 102 mmol/L (98-107); Estimated GFR 43; Globulin 3.1 g/dL (2.4-3.5); Glucose 240 mg/dL (83-110); Potassium 3.8 mmol/L (3.5-5.1); Protein, Total 6.4 g/dL (5.8-8.1); Sodium 137 mmol/L (136-145)
[2022-10-01] MEDS: HumaLOG 300 UNITS/3 ML VIAL SC PRN ×4 (08:17→21:16)
[2022-10-01] MEDS: Losartan Potassium 50 MG TAB PO SCH (08:19)
[2022-10-01] MEDS: Aspirin 325 MG TAB PO SCH (08:19)
[2022-10-01] MEDS: levETIRAcetam 500 MG TAB PO SCH ×2 (08:19→21:14)
[2022-10-01] MEDS: lamoTRIgine 25 MG TAB PO SCH (08:19)
[2022-10-01] MEDS: Nystatin Cream 15 GM TUBE TOP SCH ×2 (08:20→21:15)
[2022-10-01] MEDS: Lantiseptic Ointment 130 GM JAR TOP SCH ×2 (08:20→21:14)
[2022-10-01] MEDS ORDERED: Losartan Potassium 50 MG TAB PO SCH (11:45)
[2022-10-01] MEDS ORDERED: Lantus 1000 UNITS/10 ML VIAL SC SCH (11:45)
[2022-10-01] MEDS: Ezetimibe 10 MG TAB PO SCH (21:14)
[2022-10-01] MEDS: Atorvastatin Calcium 10 MG TAB PO SCH (21:14)
[2022-10-02] MEDS: levETIRAcetam 500 MG TAB PO SCH ×2 (08:47→20:25)
[2022-10-02] MEDS: Aspirin 325 MG TAB PO SCH (08:47)
[2022-10-02] MEDS: Lantus 1000 UNITS/10 ML VIAL SC SCH (08:48)
[2022-10-02] MEDS: lamoTRIgine 25 MG TAB PO SCH (08:49)
[2022-10-02] MEDS: Lantiseptic Ointment 130 GM JAR TOP SCH ×2 (08:49→20:26)
[2022-10-02] MEDS: Losartan Potassium 50 MG TAB PO SCH (08:50)
[2022-10-02] MEDS: Nystatin Cream 15 GM TUBE TOP SCH ×2 (08:50→20:25)
[2022-10-02] MEDS: HumaLOG 300 UNITS/3 ML VIAL SC PRN ×3 (08:51→17:09)
[2022-10-02] MEDS: Atorvastatin Calcium 10 MG TAB PO SCH (20:25)
[2022-10-02] MEDS: Ezetimibe 10 MG TAB PO SCH (20:25)
[2022-10-03] MEDS: Lantus 1000 UNITS/10 ML VIAL SC SCH (08:24)
[2022-10-03] MEDS: Aspirin 325 MG TAB PO SCH (08:24)
[2022-10-03] MEDS: lamoTRIgine 25 MG TAB PO SCH (08:25)
[2022-10-03] MEDS: Lantiseptic Ointment 130 GM JAR TOP SCH ×2 (08:28→20:40)
[2022-10-03] MEDS: levETIRAcetam 500 MG TAB PO SCH ×2 (08:29→20:40)
[2022-10-03] MEDS: Nystatin Cream 15 GM TUBE TOP SCH ×2 (08:29→20:40)
[2022-10-03] MEDS: Losartan Potassium 50 MG TAB PO SCH (08:29)
[2022-10-03] MEDS: HumaLOG 300 UNITS/3 ML VIAL SC PRN ×3 (08:30→17:56)
[2022-10-03] MEDS: Atorvastatin Calcium 10 MG TAB PO SCH (20:40)
[2022-10-03] MEDS: Ezetimibe 10 MG TAB PO SCH (20:40)
[2022-10-04] MEDS: levETIRAcetam 500 MG TAB PO SCH ×2 (08:13→21:17)
[2022-10-04] MEDS: lamoTRIgine 25 MG TAB PO SCH (08:13)
[2022-10-04] MEDS: Losartan Potassium 50 MG TAB PO SCH (08:13)
[2022-10-04] MEDS: Aspirin 325 MG TAB PO SCH (08:13)
[2022-10-04] MEDS: Lantus 1000 UNITS/10 ML VIAL SC SCH (08:14)
[2022-10-04] MEDS: Nystatin Cream 15 GM TUBE TOP SCH ×2 (08:14→21:19)
[2022-10-04] MEDS: Lantiseptic Ointment 130 GM JAR TOP SCH ×2 (08:14→21:19)
[2022-10-04] MEDS: HumaLOG 300 UNITS/3 ML VIAL SC PRN ×2 (11:58→17:05)
[2022-10-04] MEDS: Ezetimibe 10 MG TAB PO SCH (21:18)
[2022-10-04] MEDS: Atorvastatin Calcium 10 MG TAB PO SCH (21:18)
[2022-10-05] MEDS: levETIRAcetam 500 MG TAB PO SCH ×2 (08:26→20:45)
[2022-10-05] MEDS: Nystatin Cream 15 GM TUBE TOP SCH ×2 (08:27→20:46)
[2022-10-05] MEDS: Aspirin 325 MG TAB PO SCH (08:27)
[2022-10-05] MEDS: lamoTRIgine 25 MG TAB PO SCH (08:27)
[2022-10-05] MEDS: Losartan Potassium 50 MG TAB PO SCH (08:27)
[2022-10-05] MEDS: Lantiseptic Ointment 130 GM JAR TOP SCH ×2 (08:27→20:46)
[2022-10-05] MEDS: Lantus 1000 UNITS/10 ML VIAL SC SCH (08:28)
[2022-10-05 10:50] VITALS: BMI 27.9
[2022-10-05] MEDS: HumaLOG 300 UNITS/3 ML VIAL SC PRN ×2 (12:31→20:54)
[2022-10-05] MEDS: Atorvastatin Calcium 10 MG TAB PO SCH (20:45)
[2022-10-05] MEDS: Ezetimibe 10 MG TAB PO SCH (20:45)
[2022-10-06] MEDS: levETIRAcetam 500 MG TAB PO SCH ×2 (09:14→20:25)
[2022-10-06] MEDS: lamoTRIgine 25 MG TAB PO SCH (09:16)
[2022-10-06] MEDS: Aspirin 325 MG TAB PO SCH (09:16)
[2022-10-06] MEDS: Lantus 1000 UNITS/10 ML VIAL SC SCH (09:16)
[2022-10-06] MEDS: Losartan Potassium 50 MG TAB PO SCH (09:16)
[2022-10-06] MEDS: Nystatin Cream 15 GM TUBE TOP SCH ×2 (09:17→20:26)
[2022-10-06] MEDS: Lantiseptic Ointment 130 GM JAR TOP SCH ×2 (09:17→20:25)
[2022-10-06] MEDS: HumaLOG 300 UNITS/3 ML VIAL SC PRN (12:16)
[2022-10-06] MEDS: Atorvastatin Calcium 10 MG TAB PO SCH (20:25)
[2022-10-06] MEDS: Ezetimibe 10 MG TAB PO SCH (20:25)
[2022-10-07] MEDS: Lantus 1000 UNITS/10 ML VIAL SC SCH (08:31)
[2022-10-07] MEDS: Aspirin 325 MG TAB PO SCH (08:31)
[2022-10-07] MEDS: levETIRAcetam 500 MG TAB PO SCH (08:31)
[2022-10-07] MEDS: lamoTRIgine 25 MG TAB PO SCH (08:31)
[2022-10-07] MEDS: Losartan Potassium 50 MG TAB PO SCH (08:31)
[2022-10-07] MEDS: Nystatin Cream 15 GM TUBE TOP SCH (08:36)
[2022-10-07] MEDS: Lantiseptic Ointment 130 GM JAR TOP SCH (08:36)
[2022-10-07 08:38] VITALS: BP 136/83; TEMP 98.9
[2022-10-07 15:08] LABS: ALT (SGPT) 8 U/L (8-55); AST (SGOT) 11 U/L (5-34); Albumin 3.7 g/dL (3.4-4.8); Alkaline Phosphatase 87 U/L (40-110); Anion Gap 16 mmol/L (10-20); BUN (Urea Nitrogen) 18 mg/dL (9.8-20.1); Bilirubin, Total 0.4 mg/dL (0.2-1.2); Calc. Creatinine Clearance 28 mL/min (70-130); Carbon Dioxide 24 mmol/L (23-31); Chloride 100 mmol/L (98-107); Estimated GFR 26; Globulin 3.5 g/dL (2.4-3.5); Glucose 197 mg/dL (83-110); Potassium 4.6 mmol/L (3.5-5.1); Protein, Total 7.2 g/dL (5.8-8.1); Sodium 135 mmol/L (136-145)
[2022-10-07 15:18] LABS: Calcium 13.1 mg/dL (7.8-10.44)
[2022-10-07 15:34] LABS: Bilirubin Small (Negative); Blood, Urine Negative (Negative); Glucose, Urine (Dipstick) Negative (Negative); Ketone, Urine Negative (Negative); Leukocyte Negative (Negative); Nitrite Negative (Negative); Protein, Urine (Dipstick) Trace mg/dL (Neg-Trace); Urobilinogen 0.2 mg/dL (Less than 2)
[2022-10-07 15:35] LABS: Clarity Hazy (Clear)
[2022-10-07 15:41] LABS: Eosinophils 1 % (0-10); Hemoglobin 12.3 g/dL (12.0-16.0); Lymphocytes 13 % (21-51); MDiff Complete? YES; Mean Corpuscular HGB CONC 31.3 g/dL (32.0-36.0); Mean Corpuscular Hemoglobin 29.3 pg (27.0-31.0); Mean Corpuscular Volume 93.5 fl (78.0-98.0); Mean Platelet Volume 7.5 fL (7.4-10.4); Monocytes 4 % (0-10); Neutrophil 78 % (42-75); Platelet Count 338 10x3/uL (130-400); Platelet Morphology Comment Appears Adequate; RBC Distribution Width 14.6 % (11.5-14.5); RBC Morphology Normal; Reactive Lymphocytes 4 % (0-10); Red Blood Cell (RBC) Count 4.19 mill/uL (4.20-5.40)
[2022-10-07 15:48] LABS: RBC/HPF None Seen HPF (0-3)
[2022-10-07 15:49] LABS: Bacteria/HPF Rare-Few HPF (None Seen); CAUTI Indications for Culture Alt mental st,lethar; WBC/HPF 0-3 HPF (0-3)
[2022-10-07 15:50] LABS: Urine Culture Reflex No No
[2022-10-07 16:38] LABS: Calcium 13.2 mg/dL (7.8-10.44)
[2022-10-07] MEDS ORDERED: Sodium Chloride 0.9% 1,000 ML IV SCH (17:00)
== END 2022-10-07 17:30 | disposition short-term general hospital (02) | DRG 948 ==
LOC: MADMS 14:56
PROVIDERS: ADMIT Family Medicine; ATTEND Family Medicine
DX: R53.1 Weakness (principal); I50.32 Chronic diastolic (congestive) heart failure; G40.909 Epilepsy, unspecified, not intractable, without status epilepticus; I12.9 Hypertensive chronic kidney disease with stage 1 through stage 4 chronic kidney disease, or unspecified chronic kidney disease; N18.30 Chronic kidney disease, stage 3 unspecified; K21.9 Gastro-esophageal reflux disease without esophagitis; E11.649 Type 2 diabetes mellitus with hypoglycemia without coma; E78.2 Mixed hyperlipidemia; L89.152 Pressure ulcer of sacral region, stage 2; Z66 Do not resuscitate; Z88.0 Allergy status to penicillin; Z88.5 Allergy status to narcotic agent; Z79.82 Long term (current) use of aspirin; Z79.899 Other long term (current) drug therapy; Z85.3 Personal history of malignant neoplasm of breast; Z95.0 Presence of cardiac pacemaker; Z90.710 Acquired absence of both cervix and uterus; Z98.890 Other specified postprocedural states; Z98.41 Cataract extraction status, right eye
CPT/HCPCS: 36416; 70460; 80053; 80177; 81001; 85025; 36415-59; J1815

== ENCOUNTER 2022-10-07 17:13 | Emergency (ER) | payer MEDICARE ==
[2022-10-07] MEDS ORDERED: Lantiseptic Ointment 130 GM JAR TOP SCH (22:00)
[2022-10-07] MEDS ORDERED: levETIRAcetam 500 MG TAB PO SCH (22:00)
[2022-10-07] MEDS ORDERED: Nystatin Cream 15 GM TUBE TOP SCH (22:00)
[2022-10-07] MEDS ORDERED: Atorvastatin Calcium 10 MG TAB PO SCH (22:00)
[2022-10-07] MEDS ORDERED: Ezetimibe 10 MG TAB PO SCH (22:00)
[2022-10-08] MEDS ORDERED: Sodium Chloride 0.9% 1,000 ML ONE ×2 (00:03→12:10)
[2022-10-08 05:32] LABS: ALT (SGPT) Less than 7 U/L (8-55); AST (SGOT) 12 U/L (5-34); Albumin 3.1 g/dL (3.4-4.8); Alkaline Phosphatase 70 U/L (40-110); Anion Gap 13 mmol/L (10-20); BUN (Urea Nitrogen) 15 mg/dL (9.8-20.1); Bilirubin, Total 0.4 mg/dL (0.2-1.2); Calc. Creatinine Clearance 0 mL/min (70-130); Calcium 11.8 mg/dL (7.8-10.44); Carbon Dioxide 22 mmol/L (23-31); Chloride 108 mmol/L (98-107); Estimated GFR 39; Glucose 99 mg/dL (83-110); Potassium 4.2 mmol/L (3.5-5.1); Protein, Total 6.1 g/dL (5.8-8.1); Sodium 139 mmol/L (136-145)
[2022-10-08] MEDS ORDERED: Aspirin 325 MG TAB ONE (09:48)
[2022-10-08] MEDS ORDERED: levETIRAcetam 500 mg/5 ml Oral Solution ONE (10:48)
[2022-10-08] MEDS ORDERED: Losartan Potassium 50 MG TAB ONE (10:48)
[2022-10-08] MEDS ORDERED: lamoTRIgine 25 MG TAB ONE (10:48)
[2022-10-08] MEDS ORDERED: Dextrose 50% Abboject 50 ML SYRINGE ONE (10:50)
[2022-10-08 10:53] LABS: ALT (SGPT) 7 U/L (8-55); AST (SGOT) 13 U/L (5-34); Albumin 3.4 g/dL (3.4-4.8); Alkaline Phosphatase 75 U/L (40-110); Anion Gap 12 mmol/L (10-20); BUN (Urea Nitrogen) 14 mg/dL (9.8-20.1); Bilirubin, Total 0.4 mg/dL (0.2-1.2); Calc. Creatinine Clearance 0 mL/min (70-130); Calcium 12.1 mg/dL (7.8-10.44); Carbon Dioxide 23 mmol/L (23-31); Chloride 108 mmol/L (98-107); Estimated GFR 38; Globulin 3.3 g/dL (2.4-3.5); Glucose 102 mg/dL (83-110); Potassium 4.4 mmol/L (3.5-5.1); Protein, Total 6.7 g/dL (5.8-8.1); Sodium 139 mmol/L (136-145)
[2022-10-08 11:55] LABS: Magnesium 1.3 mg/dL (1.6-2.6)
[2022-10-08] MEDS ORDERED: Magnesium 2 GM/50 ML BAG (IN WATER) ONE (12:10)
[2022-10-08 13:29] LABS: #Basophils 0.1 thou/uL (0.0-0.2); #Lymphocytes 1.4 thou/uL (1.20-3.40); #Monocytes 0.5 thou/uL (0.11-0.59); #Neutrophils 5.3 thou/uL (1.40-6.50); %Basophils 1.2 % (0.0-1.0); %Eosinophils 0.5 % (0.0-10.0); %Lymphocytes 18.9 % (21.0-51.0); %Monocytes 6.9 % (0.0-10.0); %Neutrophils 72.6 % (42.0-75.0); Hemoglobin 11.4 g/dL (12.0-16.0); Mean Corpuscular Hemoglobin 29.3 pg (27.0-31.0); Mean Corpuscular Volume 94.6 fl (78.0-98.0); Mean Platelet Volume 7.4 fL (7.4-10.4); Platelet Count 290 10x3/uL (130-400); RBC Distribution Width 14.8 % (11.5-14.5); Red Blood Cell (RBC) Count 3.87 mill/uL (4.20-5.40); White Blood Cell (WBC) Count 7.2 10x3/uL (4.8-10.8)
== END 2022-10-08 15:55 | disposition short-term general hospital (02) ==
LOC: MADERS 17:13
DX: E11.65 Type 2 diabetes mellitus with hyperglycemia (principal); R41.82 Altered mental status, unspecified; I13.0 Hypertensive heart and chronic kidney disease with heart failure and stage 1 through stage 4 chronic kidney disease, or unspecified chronic kidney disease; E11.22 Type 2 diabetes mellitus with diabetic chronic kidney disease; N18.30 Chronic kidney disease, stage 3 unspecified; I50.30 Unspecified diastolic (congestive) heart failure; K21.9 Gastro-esophageal reflux disease without esophagitis; E78.00 Pure hypercholesterolemia, unspecified; G40.909 Epilepsy, unspecified, not intractable, without status epilepticus; Z79.4 Long term (current) use of insulin; Z85.3 Personal history of malignant neoplasm of breast; Z95.0 Presence of cardiac pacemaker; Z79.899 Other long term (current) drug therapy
CPT/HCPCS: 70450; 80053; 80175; 83735; 85025; 93005; 96361; 96365; 96375; J3475; J7050; J7999

== ENCOUNTER 2023-06-13 04:19 | Emergency (ER) | payer MEDICARE ==
[2023-06-13] MEDS ORDERED: Ketorolac Tromethamine 30 MG (1 mL) VIAL ONE (04:47)
[2023-06-13] MEDS ORDERED: hydrALAZINE 20 MG/ML VIAL ONE (04:47)
[2023-06-13 05:12] LABS: #Basophils 0.1 thou/uL (0.0-0.2); #Eosinphils 0.1 thou/uL (0.0-0.7); #Lymphocytes 1.1 thou/uL (1.20-3.40); #Monocytes 0.6 thou/uL (0.11-0.59); #Neutrophils 8.5 thou/uL (1.40-6.50); %Basophils 0.8 % (0.0-1.0); %Eosinophils 0.7 % (0.0-10.0); %Lymphocytes 10.4 % (21.0-51.0); %Monocytes 5.4 % (0.0-10.0); %Neutrophils 82.6 % (42.0-75.0); Hematocrit 34.6 % (36.0-47.0); Mean Corpuscular HGB CONC 31.8 g/dL (32.0-36.0); Mean Corpuscular Hemoglobin 30.3 pg (27.0-31.0); Mean Corpuscular Volume 95.4 fl (78.0-98.0); Mean Platelet Volume 7.2 fL (7.4-10.4); Platelet Count 203 10x3/uL (130-400); RBC Distribution Width 14.9 % (11.5-14.5); Red Blood Cell (RBC) Count 3.62 mill/uL (4.20-5.40); White Blood Cell (WBC) Count 10.2 10x3/uL (4.8-10.8)
[2023-06-13 05:13] LABS: Bilirubin Negative (Negative); Blood, Urine Negative (Negative); Clarity Clear (Clear); Glucose, Urine (Dipstick) Negative (Negative); Ketone, Urine Negative (Negative); Leukocyte Negative (Negative); Nitrite Negative (Negative); Protein, Urine (Dipstick) 100 mg/dL (Neg-Trace); Urobilinogen 0.2 mg/dL (Less than 2)
[2023-06-13] MEDS ORDERED: Furosemide 40 MG (4 mL) VIAL ONE (05:14)
[2023-06-13] MEDS ORDERED: Mag-Al Plus 1200/1200/120 MG (30 mL) UDCUP ONE (05:14)
[2023-06-13] MEDS ORDERED: Lidocaine 2% Viscous 100 ML BOTTLE ONE (05:15)
[2023-06-13 05:18] LABS: Bacteria/HPF Rare-Few HPF (None Seen); CAUTI Indications for Culture Dysuria,urgency,freq; RBC/HPF 0-3 HPF (0-3); Urine Culture Reflex No No; WBC/HPF 0-3 HPF (0-3)
[2023-06-13 05:32] LABS: Troponin I Less than 0.010 ng/mL (< 0.028)
[2023-06-13 05:34] LABS: Anion Gap 18 mmol/L (10-20); BUN (Urea Nitrogen) 27 mg/dL (9.8-20.1); Calc. Creatinine Clearance 0 mL/min (70-130); Calcium 10.3 mg/dL (7.8-10.44); Carbon Dioxide 19 mmol/L (23-31); Chloride 108 mmol/L (98-107); Estimated GFR 30; Glucose 228 mg/dL (83-110); Lipase 26 U/L (8-78); Magnesium 1.7 mg/dL (1.6-2.6); Potassium 4.2 mmol/L (3.5-5.1); Sodium 141 mmol/L (136-145)
[2023-06-13 06:50] LABS: Troponin I 0.018 ng/mL (< 0.028)
== END 2023-06-13 08:20 ==
LOC: MADERS 04:19
DX: I13.0 Hypertensive heart and chronic kidney disease with heart failure and stage 1 through stage 4 chronic kidney disease, or unspecified chronic kidney disease (principal); I50.9 Heart failure, unspecified; N18.30 Chronic kidney disease, stage 3 unspecified; E11.22 Type 2 diabetes mellitus with diabetic chronic kidney disease; R07.9 Chest pain, unspecified; E78.5 Hyperlipidemia, unspecified; K21.9 Gastro-esophageal reflux disease without esophagitis; Z79.899 Other long term (current) drug therapy; Z79.82 Long term (current) use of aspirin; Z79.84 Long term (current) use of oral hypoglycemic drugs
CPT/HCPCS: 71045; 80048; 81001; 83690; 83735; 83880; 84443; 84484 ×2; 85025; 93005; 96374; 96375; 99285; J0360; 36415; J1885; J1940

== ENCOUNTER 2023-08-10 03:47 | Emergency (ER) | payer MEDICARE ==
[2023-08-10 04:41] LABS: #Basophils 0.1 thou/uL (0.0-0.2); #Monocytes 0.4 thou/uL (0.11-0.59); #Neutrophils 14.2 thou/uL (1.40-6.50); %Basophils 0.6 % (0.0-1.0); %Eosinophils 0.1 % (0.0-10.0); %Lymphocytes 6.7 % (21.0-51.0); %Monocytes 2.3 % (0.0-10.0); %Neutrophils 90.4 % (42.0-75.0); Hemoglobin 9.6 g/dL (12.0-16.0); Mean Corpuscular HGB CONC 32.1 g/dL (32.0-36.0); Mean Corpuscular Hemoglobin 30.2 pg (27.0-31.0); Mean Corpuscular Volume 94.1 fl (78.0-98.0); Mean Platelet Volume 7.7 fL (7.4-10.4); Platelet Count 216 10x3/uL (130-400); RBC Distribution Width 13.4 % (11.5-14.5); Red Blood Cell (RBC) Count 3.19 mill/uL (4.20-5.40); White Blood Cell (WBC) Count 15.7 10x3/uL (4.8-10.8)
[2023-08-10 04:50] LABS: ALT (SGPT) 13 U/L (8-55); AST (SGOT) 10 U/L (5-34); Albumin 3.8 g/dL (3.4-4.8); Alkaline Phosphatase 58 U/L (40-110); Anion Gap 17 mmol/L (10-20); BUN (Urea Nitrogen) 41 mg/dL (9.8-20.1); Bilirubin, Total 0.6 mg/dL (0.2-1.2); CK (CPK) 46 U/L (29-168); Calc. Creatinine Clearance 0 mL/min (70-130); Carbon Dioxide 24 mmol/L (23-31); Chloride 100 mmol/L (98-107); Estimated GFR 20; Globulin 2.6 g/dL (2.4-3.5); Magnesium 1.7 mg/dL (1.6-2.6); Potassium 4.6 mmol/L (3.5-5.1); Protein, Total 6.4 g/dL (5.8-8.1); Sodium 136 mmol/L (136-145)
[2023-08-10 04:57] LABS: Critical Call Chemistry NUR.JW17; Glucose 433 mg/dL (83-110)
[2023-08-10] MEDS ORDERED: Ondansetron PF 4 MG/2 ML Vial ONE (05:19)
[2023-08-10 05:30] LABS: Influenza A by NAA Not Detected (NotDetected); SARS-CoV-2 NAA Rapid Test Not Detected (NotDetected)
[2023-08-10] MEDS ORDERED: HUM PROTHROMBIN CPLX(PCC) 1,000 UNITS VIAL ONE (05:36)
[2023-08-10] MEDS ORDERED: Tranexamic Acid 1,000 MG/10 ML VIAL ONE (05:40)
[2023-08-10 06:11] LABS: Base Excess-Venous -4.2 mmol/L (-2.0 to 3.0); Bicarbonate (HCO3v) 21.5 mmol/L (22.0-28.0); CO2 Tension (PvCO2) 41.2 mmHg (42.0-51.0); Calcium, Ionized 0.98 mmol/L (1.15-1.33); Chloride 102 mmol/L (98-107); Hemoglobin - Calc 7.9 g/dL (12.0-16.0); Potassium 4.2 mmol/L (3.5-5.1); Sodium 133 mmol/L (138-145); T. Carbon Dioxide 22.8 mmol/L (22.0-28.0); vO2 Saturation-calc 98.7 % (60.0-85.0)
[2023-08-10] MEDS ORDERED: Vancomycin 1 GM VIAL ONE (06:24)
[2023-08-10] MEDS ORDERED: Sodium Chloride 0.9% 250 ML 250 ML ONE (06:26)
[2023-08-10 07:10] LABS: Lactic Acid 1.7 mmol/L (0.5-2.2)
[2023-08-10 07:37] LABS: Hematocrit 24.9 % (36.0-47.0)
[2023-08-10] MEDS ORDERED: Iopamidol 370 76% 100 ML VIAL ONE (09:00)
[2023-08-10] MEDS ORDERED: Sodium Chloride 0.9% 100 ML BAG ONE (09:00)
== END 2023-08-10 07:50 | disposition short-term general hospital (02) ==
LOC: MADERS 03:47
DX: K66.1 Hemoperitoneum (principal); N17.9 Acute kidney failure, unspecified; R58 Hemorrhage, not elsewhere classified; I13.0 Hypertensive heart and chronic kidney disease with heart failure and stage 1 through stage 4 chronic kidney disease, or unspecified chronic kidney disease; I50.9 Heart failure, unspecified; N18.30 Chronic kidney disease, stage 3 unspecified; E11.22 Type 2 diabetes mellitus with diabetic chronic kidney disease; E78.5 Hyperlipidemia, unspecified; Z79.4 Long term (current) use of insulin; Z79.899 Other long term (current) drug therapy; Z79.84 Long term (current) use of oral hypoglycemic drugs; Z79.82 Long term (current) use of aspirin
CPT/HCPCS: 0240U; 71275; 74174; 74176; 80053; 82330; 82435; 82550; 82803; 83605; 83735; 84132; 84295; 85014; 85018; 85025; 86850; 86900; 86901; 86920; 87040; 87804 ×2; 93005; J7168; 96361; 96365; 96367; 96375; J2405; J3370; J3490; J7050; Q9967

== ENCOUNTER 2023-08-27 15:30 | Emergency (ER) | payer MEDICARE | END 2023-08-27 17:24 | LOC: MADERS 15:30 | DX: S00.83XA Contusion of other part of head, initial encounter (principal); I13.0 Hypertensive heart and chronic kidney disease with heart failure and stage 1 through stage 4 chronic kidney disease, or unspecified chronic kidney disease; I50.9 Heart failure, unspecified; N18.30 Chronic kidney disease, stage 3 unspecified; I12.9 Hypertensive chronic kidney disease with stage 1 through stage 4 chronic kidney disease, or unspecified chronic kidney disease; K21.9 Gastro-esophageal reflux disease without esophagitis; E78.5 Hyperlipidemia, unspecified; Z79.82 Long term (current) use of aspirin; Z79.899 Other long term (current) drug therapy; W18.30XA Fall on same level, unspecified, initial encounter | CPT/HCPCS: 70450; 72125 ==